=== PATIENT | female | born 1955 | race Caucasian/White ===

== ENCOUNTER → 2016-08-05 | Outpatient (REF) | payer OTHER ==
[~2016-08-05] MED LIST: ASPI1TAB PO; CALCIUM PO; CELE20TA PO; CELE40TA PO; ESTR1TAB PO; FLON1SPR; MEDR2.5T2 PO; MULTCHW13 PO; Mucinex PO; PYRI100T2 PO; SENO8.6T10 PO; VIT PO; VITA-193 SL; VITA20008 PO; VITA80005 PO; XOPENEX NEBULIZER INH; ZANTTAB9 PO; [UNRECOGNIZED DRUG - CODE] PO; colace PO; motrin PO; percocet PO
[2016-08-05 13:08] LABS: BASO % 0.5 % (0.0-1.0); EOS # 0.2 K/mm3 (0.0-0.50); EOS % 2.4 % (0.0-3.0); LARGE UNSTAINED CELL # 0.1 K/mm3 (0.0-0.4); LYMPH # 1.9 K/mm3 (1.5-4.5); LYMPH % 24.5 % (24.0-44.0); MEAN CORPUSCULAR HEMOGLOBIN 27.4 pg (27.0-33.0); MEAN CORPUSCULAR VOLUME 85.9 fl (80.0-96.0); MONO # 0.4 K/mm3 (0.0-0.8); MONO % 4.7 % (0.0-5.0); NEUTROPHILS # 4.9 K/mm3 (1.8-7.7); NEUTROPHILS % 66.9 % (36.0-66.0); PLATELET COUNT, AUTOMATED 255 k/mm3 (150-450); RED CELL DISTRIBUTION WIDTH 13.5 % (11.5-14.5); WHITE BLOOD COUNT 7.4 K/mm3 (4.0-10.0)
[2016-08-05 13:15] LABS: CALCIUM OXALATE CRYSTALS SMALL
[2016-08-05 13:17] LABS: ALBUMIN/GLOBULIN RATIO 1.43 (1.00-1.93); ALKALINE PHOSPHATASE 100 U/L (45-117); ALT/SGPT 26 U/L (12-78); ANION GAP 7 MEQ/L (8-16); AST/SGOT 17 U/L (15-37); BILIRUBIN,TOTAL 0.6 MG/DL (0.2-1.0); BLOOD UREA NITROGEN 14 MG/DL (7-18); CALCIUM LEVEL 9.1 MG/DL (8.8-10.2); CARBON DIOXIDE LEVEL 31 MEQ/L (21-32); CHLORIDE LEVEL 106 MEQ/L (98-107); CREATININE FOR GFR 0.86 MG/DL (0.55-1.02); FERRITIN 24 NG/ML (8-252); GLOMERULAR FILTRATION RATE > 60.0 (>45); GLUCOSE, FASTING 92 MG/DL (80-110); POTASSIUM SERUM 4.7 MEQ/L (3.5-5.1); SODIUM LEVEL 144 MEQ/L (136-145); TOTAL IRON BINDING CAPACITY 400 UG/DL (250-450); TOTAL PROTEIN 6.8 GM/DL (6.4-8.2)
[2016-08-09 00:06] LABS: D001-IgE D pteronyssinus <0.10 kU/L (Class 0); E001-IgE Cat Epith/Dander < 0.10 kU/L (Class 0); E005-IgE Dog Dander < 0.10 kU/L (Class 0); G002-IgE Bermuda Grass < 0.10 kU/L (Class 0); G008-IgE Kentucky Bluegrass < 0.10 kU/L (Class 0); M001-IgE Penicillium chrysogen < 0.10 kU/L (Class 0); M002 IgE Cladosporium herbaru < 0.10 kU/L (Class 0); M003 IgE Aspergillus fumigatu < 0.10 kU/L (Class 0); M006-IgE Alternaria alternata < 0.10 kU/L (Class 0); T001-IgE Maple/Box Elder < 0.10 kU/L (Class 0); T003-IgE Common Silver Birch < 0.10 kU/L (Class 0); T007-IgE Oak, White < 0.10 kU/L (Class 0); T008-IgE Elm, American < 0.10 kU/L (Class 0); T015-IgE Ash, White < 0.10 kU/L (Class 0); T041-IgE Hickory, White < 0.10 kU/L (Class 0); W001-IgE Ragweed, Short < 0.10 kU/L (Class 0); W009-IgE Plantain, English < 0.10 kU/L (Class 0); W014-IgE Pigweed, Rough < 0.10 kU/L (Class 0); W018-IgE Sheep Sorrel < 0.10 kU/L (Class 0)
== END ==
LOC: M SFHCPLAZ 08:47
PROVIDERS: ATTEND Family Medicine
DX: D50.9 Iron deficiency anemia, unspecified (principal); I10 Essential (primary) hypertension; R73.01 Impaired fasting glucose; J30.9 Allergic rhinitis, unspecified

== ENCOUNTER → 2016-12-21 | Outpatient (CLI) | payer OTHER ==
[~2016-12-21] MED LIST changes: +MEDR1TAB2 PO; -MEDR2.5T2 PO; -MULTCHW13 PO; +MULTCHW14 PO
--- NOTE | 2016-12-21 12:21 | REPMRS ---
Patient History The patient states she has not had a clinical breast exam in over a year. Patient is postmenopausal. Family history of breast cancer in maternal aunt at age 50 or over and breast cancer in paternal cousin at age 55. Took unspecified hormones for 5 years. Digital Woman Screen Mammo: December 21, 2016 - Exam #: [id number] Bilateral CC and MLO view(s) were taken. Technologist: Jaquelin Bruner, Technologist Prior study comparison: December 23, 2015, digital woman screen mammo performed at [facility] [employer]. December 20, 2014, digital woman screen mammo performed at [facility] [employer] [facility]. FINDINGS: There are scattered fibroglandular densities. There has been no change in the appearance of the mammogram from the prior studies. There is a mild amount of residual fibroglandular tissue which is fairly symmetric. There is no interval development of dominant mass, architectural distortion, or clustered microcalcification suggestive of malignancy. ASSESSMENT: BI-RADS/ACR category 1 mammogram. Negative. Recommendation Routine screening mammogram in 1 year (for women over age 40). This mammogram was interpreted with the aid of an FDA-approved computer-aided dectection system. Electronically Signed By: Harlan Cummings MD 12/21/16 [id number]
== END ==
LOC: M WHC 11:44
PROVIDERS: ATTEND Family Medicine
DX: Z12.31 Encounter for screening mammogram for malignant neoplasm of breast (principal); Z78.0 Asymptomatic menopausal state; Z92.0 Personal history of contraception

== ENCOUNTER → 2017-01-04 | Outpatient (REF) | payer OTHER ==
[2017-01-04 12:18] LABS: BASO % 0.6 % (0.0-1.0); EOS # 0.2 K/mm3 (0.0-0.50); EOS % 2.9 % (0.0-3.0); LARGE UNSTAINED CELL # 0.1 K/mm3 (0.0-0.4); LARGE UNSTAINED CELL % 1.9 % (0.0-4.0); LYMPH # 1.8 K/mm3 (1.5-4.5); MEAN CORPUSCULAR HEMOGLOBIN 27.7 pg (27.0-33.0); MEAN CORPUSCULAR HGB CONC 32.5 g/dl (32.0-36.5); MEAN CORPUSCULAR VOLUME 85.1 fl (80.0-96.0); MONO # 0.3 K/mm3 (0.0-0.8); MONO % 4.7 % (0.0-5.0); NEUTROPHILS # 4.1 K/mm3 (1.8-7.7); NEUTROPHILS % 62.9 % (36.0-66.0); PLATELET COUNT, AUTOMATED 278 k/mm3 (150-450); RED CELL DISTRIBUTION WIDTH 14.1 % (11.5-14.5); WHITE BLOOD COUNT 6.5 K/mm3 (4.0-10.0)
[2017-01-04 12:23] LABS: ALBUMIN 3.8 GM/DL (3.2-5.2); ALBUMIN/GLOBULIN RATIO 1.41 (1.00-1.93); ALKALINE PHOSPHATASE 85 U/L (45-117); ALT/SGPT 33 U/L (12-78); ANION GAP 10 MEQ/L (8-16); AST/SGOT 22 U/L (15-37); BILIRUBIN,TOTAL 0.8 MG/DL (0.2-1.0); BLOOD UREA NITROGEN 12 MG/DL (7-18); CALCIUM LEVEL 8.9 MG/DL (8.8-10.2); CARBON DIOXIDE LEVEL 28 MEQ/L (21-32); CHLORIDE LEVEL 107 MEQ/L (98-107); CHOLESTEROL LEVEL 205 MG/DL (<200); CREATININE FOR GFR 0.67 MG/DL (0.55-1.02); GLOMERULAR FILTRATION RATE > 60.0 (>45); GLUCOSE, FASTING 96 MG/DL (80-110); POTASSIUM SERUM 4.4 MEQ/L (3.5-5.1); SODIUM LEVEL 145 MEQ/L (136-145); TOTAL PROTEIN 6.5 GM/DL (6.4-8.2); TRIGLYCERIDES LEVEL 111 MG/DL (<150)
== END ==
LOC: M SFHCPLAZ 08:51
PROVIDERS: ATTEND Family Medicine
DX: I10 Essential (primary) hypertension (principal); E78.5 Hyperlipidemia, unspecified

== ENCOUNTER → 2017-04-20 | Outpatient (REF) | payer OTHER ==
[2017-04-20 10:49] LABS: BASO % 0.6 % (0.0-1.0); EOS # 0.2 10^3/uL (0.0-0.50); EOS % 2.8 % (0.0-3.0); IMMATURE GRANULOCYTE % 0.3 % (0-0); LYMPH # 1.7 10^3/uL (1.5-4.5); LYMPH % 24.1 % (24.0-44.0); MEAN CORPUSCULAR HEMOGLOBIN 26.7 pg (27.0-33.0); MEAN CORPUSCULAR HGB CONC 31.8 g/dl (32.0-36.5); MEAN CORPUSCULAR VOLUME 84.1 fl (80.0-96.0); MONO # 0.3 10^3/uL (0.0-0.8); MONO % 4.6 % (0.0-5.0); NEUTROPHILS # 4.8 10^3/uL (1.8-7.7); NEUTROPHILS % 67.6 % (36.0-66.0); PLATELET COUNT, AUTOMATED 305 10^3/uL (150-450); RED CELL DISTRIBUTION WIDTH 14.2 % (11.5-14.5); WHITE BLOOD COUNT 7.1 10^3/uL (4.0-10.0)
[2017-04-20 11:35] LABS: ALBUMIN 3.5 GM/DL (3.2-5.2); ALBUMIN/GLOBULIN RATIO 1.03 (1.00-1.93); ALKALINE PHOSPHATASE 100 U/L (45-117); ALT/SGPT 26 U/L (12-78); ANION GAP 6 MEQ/L (8-16); AST/SGOT 16 U/L (7-37); BILIRUBIN,TOTAL 0.5 MG/DL (0.2-1.0); BLOOD UREA NITROGEN 13 MG/DL (7-18); CALCIUM LEVEL 8.5 MG/DL (8.8-10.2); CARBON DIOXIDE LEVEL 31 MEQ/L (21-32); CHLORIDE LEVEL 107 MEQ/L (98-107); FERRITIN 23 NG/ML (8-252); GLOMERULAR FILTRATION RATE > 60.0 (>45); GLUCOSE, FASTING 94 MG/DL (80-110); PERCENT SATURATION 15.5 % (13.2-45.0); POTASSIUM SERUM 4.6 MEQ/L (3.5-5.1); SODIUM LEVEL 144 MEQ/L (136-145); TOTAL IRON BINDING CAPACITY 386 UG/DL (250-450); TOTAL PROTEIN 6.9 GM/DL (6.4-8.2)
== END ==
LOC: M SFHCPLAZ 09:00
PROVIDERS: ATTEND Family Medicine
DX: R73.01 Impaired fasting glucose (principal); D50.9 Iron deficiency anemia, unspecified; E55.9 Vitamin D deficiency, unspecified

== ENCOUNTER → 2017-06-18 | Outpatient (CLI) | payer OTHER | LOC: M PLARAD 07:44 | DX: M19.071 Primary osteoarthritis, right ankle and foot (principal) | CPT/HCPCS: 73721 ==

== ENCOUNTER 2017-06-24 11:10 | Emergency (ER) | payer OTHER ==
[2017-06-24] MEDS: IBUPROFEN 800 MG TAB PO (12:30)
[2017-06-24] MEDS: IPRATROPIUM 0.5MG/ALBUTEROL 2.5MG INH SOL UD 3ML (DUONEB)(J7620) NEB ×2 (12:30→13:01)
[2017-06-24] MEDS: predniSONE 20 MG TAB PO (12:30)
[2017-06-24] MEDS: AZITHROMYCIN 250 MG TAB PO (13:45)
== END 2017-06-24 14:05 | disposition home or self-care (01) ==
LOC: M ED 11:10
DX: J18.9 Pneumonia, unspecified organism (principal); I10 Essential (primary) hypertension; K21.9 Gastro-esophageal reflux disease without esophagitis
CPT/HCPCS: 71046

== ENCOUNTER → 2017-06-28 | Outpatient (REF) | payer OTHER ==
[2017-06-28 17:02] LABS: ALBUMIN 3.8 GM/DL (3.2-5.2); ALBUMIN/GLOBULIN RATIO 1.03 (1.00-1.93); ALKALINE PHOSPHATASE 102 U/L (45-117); ALT/SGPT 30 U/L (12-78); ANION GAP 6 MEQ/L (8-16); AST/SGOT 19 U/L (7-37); BILIRUBIN,TOTAL 0.4 MG/DL (0.2-1.0); BLOOD UREA NITROGEN 19 MG/DL (7-18); CALCIUM LEVEL 9.2 MG/DL (8.8-10.2); CARBON DIOXIDE LEVEL 32 MEQ/L (21-32); CHLORIDE LEVEL 104 MEQ/L (98-107); GLOMERULAR FILTRATION RATE > 60.0 (>45); GLUCOSE, FASTING 107 MG/DL (70-100); POTASSIUM SERUM 4.8 MEQ/L (3.5-5.1); SODIUM LEVEL 142 MEQ/L (136-145); TOTAL PROTEIN 7.5 GM/DL (6.4-8.2)
[2017-06-28 17:44] LABS: VITAMIN B12 LEVEL > 2000 PG/ML (247-911)
== END ==
LOC: M SFHCPLAZ 12:42
DX: J18.1 Lobar pneumonia, unspecified organism (principal); D51.8 Other vitamin B12 deficiency anemias
CPT/HCPCS: 82607

== ENCOUNTER → 2017-07-05 | Outpatient (REF) | payer OTHER ==
[2017-07-05 15:46] LABS: BASO # 0.1 10^3/uL (0.0-0.2); BASO % 0.5 % (0.0-1.0); EOS # 0.2 10^3/uL (0.0-0.50); EOS % 1.2 % (0.0-3.0); HEMATOCRIT 41.6 % (36.0-47.0); HEMOGLOBIN 12.9 g/dl (12.0-16.0); IMMATURE GRANULOCYTE # 0.1 10^3/uL (0-0); IMMATURE GRANULOCYTE % 0.6 % (0-0); LYMPH % 31.4 % (24.0-44.0); MEAN CORPUSCULAR HEMOGLOBIN 26.7 pg (27.0-33.0); MEAN CORPUSCULAR VOLUME 86.1 fl (80.0-96.0); MONO # 0.9 10^3/uL (0.0-0.8); MONO % 6.7 % (0.0-5.0); NEUTROPHILS # 7.6 10^3/uL (1.8-7.7); NEUTROPHILS % 59.6 % (36.0-66.0); PLATELET COUNT, AUTOMATED 333 10^3/uL (150-450); RED BLOOD COUNT 4.83 10^6/uL (4.00-5.40); RED CELL DISTRIBUTION WIDTH 13.8 % (11.5-14.5); WHITE BLOOD COUNT 12.7 10^3/uL (4.0-10.0)
== END ==
LOC: M SFHCPLAZ 12:27
DX: J01.10 Acute frontal sinusitis, unspecified (principal)

== ENCOUNTER → 2017-08-19 | Outpatient (REF) | payer OTHER ==
[2017-08-19 11:59] LABS: BASO # 0.1 10^3/uL (0.0-0.2); BASO % 0.9 % (0.0-1.0); EOS # 0.2 10^3/uL (0.0-0.50); EOS % 2.9 % (0.0-3.0); HEMATOCRIT 38.8 % (36.0-47.0); HEMOGLOBIN 12.3 g/dl (12.0-16.0); IMMATURE GRANULOCYTE % 0.3 % (0-3.0); LYMPH # 1.9 10^3/uL (1.5-4.5); LYMPH % 27.4 % (24.0-44.0); MEAN CORPUSCULAR HEMOGLOBIN 26.9 pg (27.0-33.0); MEAN CORPUSCULAR HGB CONC 31.7 g/dl (32.0-36.5); MEAN CORPUSCULAR VOLUME 84.7 fl (80.0-96.0); MONO # 0.5 10^3/uL (0.0-0.8); MONO % 6.5 % (0.0-5.0); NEUTROPHILS # 4.3 10^3/uL (1.8-7.7); PLATELET COUNT, AUTOMATED 279 10^3/uL (150-450); RED BLOOD COUNT 4.58 10^6/uL (4.00-5.40); RED CELL DISTRIBUTION WIDTH 14.4 % (11.5-14.5); WHITE BLOOD COUNT 6.9 10^3/uL (4.0-10.0)
[2017-08-19 13:27] LABS: ALBUMIN 3.7 GM/DL (3.2-5.2); ALBUMIN/GLOBULIN RATIO 1.28 (1.00-1.93); ALKALINE PHOSPHATASE 84 U/L (45-117); ALT/SGPT 24 U/L (12-78); ANION GAP 7 MEQ/L (8-16); AST/SGOT 12 U/L (7-37); BILIRUBIN,TOTAL 0.5 MG/DL (0.2-1.0); BLOOD UREA NITROGEN 18 MG/DL (7-18); CALCIUM LEVEL 8.6 MG/DL (8.8-10.2); CARBON DIOXIDE LEVEL 28 MEQ/L (21-32); CHLORIDE LEVEL 109 MEQ/L (98-107); CHOLESTEROL LEVEL 213 MG/DL (<200); CHOLESTEROL RISK RATIO 3.435 (<5); CREATININE FOR GFR 0.61 MG/DL (0.55-1.30); FERRITIN 20 NG/ML (8-252); GLOMERULAR FILTRATION RATE > 60.0 (>45); GLUCOSE, FASTING 90 MG/DL (70-100); HDL CHOLESTEROL 62 MG/DL (>40); IRON (FE) 58 UG/DL (50-170); LDL CHOLESTEROL 136.4 MG/DL (<100); MAGNESIUM LEVEL 2.4 MG/DL (1.8-2.4); NON-HDL-C 151 MG/DL; PERCENT SATURATION 15.7 % (13.2-45.0); POTASSIUM SERUM 4.3 MEQ/L (3.5-5.1); SODIUM LEVEL 144 MEQ/L (136-145); TOTAL IRON BINDING CAPACITY 369 UG/DL (250-450); TOTAL PROTEIN 6.6 GM/DL (6.4-8.2); TRIGLYCERIDES LEVEL 73 MG/DL (<150)
[2017-08-19 13:57] LABS: ESTIMATED AVERAGE GLUCOSE 123 MG/DL (60-110); HEMOGLOBIN A1c 5.9 %
== END ==
LOC: M SFHCPLAZ 08:23
DX: D50.9 Iron deficiency anemia, unspecified (principal); I10 Essential (primary) hypertension; R73.01 Impaired fasting glucose; E78.5 Hyperlipidemia, unspecified
CPT/HCPCS: 83550

== ENCOUNTER → 2017-11-03 | Outpatient (REF) | LOC: M SMT 10:48 | DX: M54.5 Low back pain (principal) ==

== ENCOUNTER → 2017-11-24 | Outpatient (REF) | payer OTHER ==
[2017-11-24 12:08] LABS: BASO # 0.1 10^3/uL (0.0-0.2); BASO % 0.7 % (0.0-1.0); EOS # 0.2 10^3/uL (0.0-0.50); EOS % 2.6 % (0.0-3.0); HEMATOCRIT 39.3 % (36.0-47.0); HEMOGLOBIN 12.6 g/dl (12.0-15.5); IMMATURE GRANULOCYTE % 0.1 % (0-3.0); LYMPH # 1.8 10^3/uL (1.5-4.5); LYMPH % 26.9 % (24.0-44.0); MEAN CORPUSCULAR HEMOGLOBIN 27.3 pg (27.0-33.0); MEAN CORPUSCULAR HGB CONC 32.1 g/dl (32.0-36.5); MEAN CORPUSCULAR VOLUME 85.2 fl (80.0-96.0); MONO # 0.4 10^3/uL (0.0-0.8); MONO % 6.3 % (0.0-5.0); NEUTROPHILS # 4.3 10^3/uL (1.8-7.7); NEUTROPHILS % 63.4 % (36.0-66.0); PLATELET COUNT, AUTOMATED 283 10^3/uL (150-450); RED BLOOD COUNT 4.61 10^6/uL (4.00-5.40); RED CELL DISTRIBUTION WIDTH 14.1 % (11.5-14.5); RETIC HEMOGLOBIN EQUIVALENT 29.4 pg (24-36); RETICULOCYTE # 67.8 10^9/L (17-77); RETICULOCYTE % 1.5 % (0.5-1.5); WHITE BLOOD COUNT 6.8 10^3/uL (4.0-10.0)
[2017-11-24 12:12] LABS: CHOLESTEROL LEVEL 209 MG/DL (<200); CHOLESTEROL RISK RATIO 3.426 (<5); CPK CREATINE PHOSPHOKINASE 100 U/L (26-192); HDL CHOLESTEROL 61 MG/DL (>40); LDL CHOLESTEROL 127.4 MG/DL (<100); NON-HDL-C 148 MG/DL; TRIGLYCERIDES LEVEL 103 MG/DL (<150)
[2017-11-24 12:17] LABS: VITAMIN B12 LEVEL 592 PG/ML (247-911)
[2017-11-24 12:58] LABS: ESTIMATED AVERAGE GLUCOSE 120 MG/DL (60-110); HEMOGLOBIN A1c 5.8 %
[2017-11-25 14:39] LABS: INSULIN LEVEL 12.8 uIU/mL (2.6-24.9)
== END ==
LOC: M SFHCPLAZ 08:41
DX: D51.8 Other vitamin B12 deficiency anemias (principal); E78.5 Hyperlipidemia, unspecified; R73.01 Impaired fasting glucose
CPT/HCPCS: 82550

== ENCOUNTER → 2017-12-22 | Outpatient (CLI) | payer OTHER | LOC: M WHC 13:03 | DX: Z12.31 Encounter for screening mammogram for malignant neoplasm of breast (principal) | CPT/HCPCS: 77067 ==

== ENCOUNTER → 2018-02-16 | Outpatient (CLI) | payer OTHER | LOC: M SMT 09:42 | DX: J45.20 Mild intermittent asthma, uncomplicated (principal) | CPT/HCPCS: 71046 ==

== ENCOUNTER → 2018-04-07 | Outpatient (REF) | payer OTHER ==
[2018-04-07 12:55] LABS: APPEARANCE, URINE HAZY (CLEAR); BACTERIA, URINE AUTO NEGATIVE (NEGATIVE); BILIRUBIN, URINE AUTO NEGATIVE (NEGATIVE); BLOOD, URINE BLOOD NEGATIVE (NEGATIVE); CALCIUM OXALATE CRYSTALS SMALL; COLOR, URINE YELLOW (YELLOW); GLUCOSE, URINE (UA) AUTO NEGATIVE (NEGATIVE); KETONE, URINE AUTO NEGATIVE (NEGATIVE); LEUKOCYTE ESTERASE, URINE AUTO 1+ (NEGATIVE); MUCUS, URINE SMALL (NEGATIVE); NITRITE, URINE AUTO NEGATIVE (NEGATIVE); PROTEIN, URINE AUTO NEGATIVE (NEGATIVE); RBC, URINE AUTO 2 /HPF (0-3); SPECIFIC GRAVITY URINE AUTO 1.021 (1.002-1.035); SQUAMOUS EPITHELIAL CELL UR AU 2 /HPF (0-6); UROBILINOGEN, URINE AUTO 0.2 mg/dL (0.0-2.0); WBC, URINE AUTO 10 /HPF (0-3)
[2018-04-07 13:25] LABS: ALBUMIN 3.9 GM/DL (3.2-5.2); ALBUMIN/GLOBULIN RATIO 1.39 (1.00-1.93); ALKALINE PHOSPHATASE 85 U/L (45-117); ALT/SGPT 22 U/L (12-78); ANION GAP 6 MEQ/L (8-16); AST/SGOT 14 U/L (7-37); BILIRUBIN,TOTAL 0.5 MG/DL (0.2-1.0); BLOOD UREA NITROGEN 19 MG/DL (7-18); CALCIUM LEVEL 9.6 MG/DL (8.8-10.2); CARBON DIOXIDE LEVEL 29 MEQ/L (21-32); CHLORIDE LEVEL 105 MEQ/L (98-107); GLOMERULAR FILTRATION RATE > 60.0 (>45); GLUCOSE, FASTING 90 MG/DL (70-100); MAGNESIUM LEVEL 2.5 MG/DL (1.8-2.4); POTASSIUM SERUM 4.7 MEQ/L (3.5-5.1); SODIUM LEVEL 140 MEQ/L (136-145); TOTAL PROTEIN 6.7 GM/DL (6.4-8.2)
[2018-04-07 16:23] LABS: MALB URINE SIEMENS 32.2 MG/L; MAU/CREAT RATIO 16.8 MCG/MG (0.0-30.0)
[2018-04-07 18:34] LABS: ESTIMATED AVERAGE GLUCOSE 114 MG/DL (60-110); HEMOGLOBIN A1c 5.6 %
== END ==
LOC: M SFHCPLAZ 08:30
DX: R73.01 Impaired fasting glucose (principal); E78.5 Hyperlipidemia, unspecified

== ENCOUNTER → 2018-05-10 | Outpatient (CLI) | payer OTHER | LOC: M RAD 14:02 | DX: R59.0 Localized enlarged lymph nodes (principal); D17.0 Benign lipomatous neoplasm of skin and subcutaneous tissue of head, face and neck | CPT/HCPCS: 76536 ==

== ENCOUNTER → 2018-08-24 | Outpatient (REF) | payer OTHER ==
[~2018-08-24] MED LIST changes: +ALBU83IN INH; +ALEV1TAB PO; +AMLO2.5T3 PO; +COZA1TAB PO; +DULO30CA PO; +PRED10TA2 PO; +ZITHTAB PO; +[UNRECOGNIZED DRUG - CODE] PO
[2018-08-24 11:39] LABS: BASO # 0.1 10^3/uL (0.0-0.2); BASO % 0.9 % (0.0-1.0); EOS # 0.2 10^3/uL (0.0-0.50); EOS % 2.4 % (0.0-3.0); HEMATOCRIT 39.6 % (36.0-47.0); HEMOGLOBIN 12.7 g/dl (12.0-15.5); LYMPH # 2.1 10^3/uL (1.5-4.5); LYMPH % 29.7 % (24.0-44.0); MEAN CORPUSCULAR HEMOGLOBIN 26.5 pg (27.0-33.0); MEAN CORPUSCULAR HGB CONC 32.1 g/dl (32.0-36.5); MEAN CORPUSCULAR VOLUME 82.5 fl (80.0-96.0); MONO # 0.5 10^3/uL (0.0-0.8); NEUTROPHILS # 4.2 10^3/uL (1.8-7.7); NEUTROPHILS % 59.6 % (36.0-66.0); PLATELET COUNT, AUTOMATED 271 10^3/uL (150-450)
[2018-08-24 11:55] LABS: ALBUMIN 3.9 GM/DL (3.2-5.2); ALT/SGPT 17 U/L (12-78); BILIRUBIN,TOTAL 0.6 MG/DL (0.2-1.0); BLOOD UREA NITROGEN 18 MG/DL (7-18); C REACTIVE PROTEIN QUANTITATIV 0.76 MG/DL (0.00-0.30); CALCIUM LEVEL 9.1 MG/DL (8.8-10.2); CARBON DIOXIDE LEVEL 31 MEQ/L (21-32); CHLORIDE LEVEL 107 MEQ/L (98-107); CHOLESTEROL LEVEL 231 MG/DL (<200); CHOLESTEROL RISK RATIO 4.052 (<5); CREATININE FOR GFR 0.82 MG/DL (0.55-1.30); GLOMERULAR FILTRATION RATE > 60.0 (>45); GLUCOSE, FASTING 90 MG/DL (70-100); HDL CHOLESTEROL 57 MG/DL (>40); LDL CHOLESTEROL 159 MG/DL (<100); NON-HDL-C 174 MG/DL; POTASSIUM SERUM 4.6 MEQ/L (3.5-5.1); SODIUM LEVEL 141 MEQ/L (136-145); TOTAL PROTEIN 6.9 GM/DL (6.4-8.2); TRIGLYCERIDES LEVEL 74 MG/DL (<150)
[2018-08-24 12:02] LABS: PTH INTACT 87.2 PG/ML (18.5-88.0)
[2018-08-24 12:05] LABS: HEMOGLOBIN A1c 5.6 %
== END ==
LOC: M SFHCPLAZ 08:34
PROVIDERS: ATTEND Family Medicine
DX: D50.9 Iron deficiency anemia, unspecified (principal); E55.9 Vitamin D deficiency, unspecified; E78.5 Hyperlipidemia, unspecified; R73.01 Impaired fasting glucose

== ENCOUNTER → 2018-12-19 | Outpatient (CLI) | payer OTHER ==
[~2018-12-19] MED LIST changes: -ASPI1TAB PO; +ASPI81TA26 PO; +ATOR1TAB21 PO; -DULO30CA PO; +DULO30CA9 PO; +LEVOCETIRIZINE PO; +OMEP40CA2 PO; +TELM1TAB PO
--- NOTE | 2018-12-19 14:49 | REPMRS ---
Patient History The patient states she has not had a clinical breast exam in over a year. Patient is postmenopausal. Family history of breast cancer at age 50 or over in maternal aunt. Taking estrogen for 1 month. Taking unspecified hormones for 5 years 1 month. 3D TOMOSYNTHESIS WAS PERFORMED. [facility] lifetime risk for breast cancer is 9.1%. Digital Woman Screen Mammo: December 19, 2018 - Exam #: [id number] Bilateral MLO and CC view(s) were taken. CV view(s) were taken of the right breast. Technologist: Breanna Jules, Technologist Prior study comparison: December 22, 2017, bilateral digital woman screen mammo performed at [facility] [email or web address]. December 21, 2016, digital woman screen mammo performed at [facility] [email or web address] [facility] [email or web address] [facility]. FINDINGS: There are scattered fibroglandular densities. There has been no change in the appearance of the mammogram from the prior studies. There is a mild amount of residual fibroglandular tissue which is fairly symmetric. There is no interval development of dominant mass, architectural distortion, or clustered microcalcification suggestive of malignancy. Assessment: BI-RADS/ACR category 1 mammogram. Negative Mammogram. Recommendation Routine screening mammogram in 1 year (for women over age 40). This mammogram was interpreted with the aid of an FDA-approved computer-aided dectection system. Electronically Signed By: Harlan Cummings MD 12/19/18 [id number]
--- NOTE | 2018-12-21 12:32 | DEXA ---
AP SPINE L1 - L4 1.057 -1.0 0.4 LT FEMUR TOTAL 0.985 -0.2 0.9 LT NECK 0.887 -1.1 0.3 RT FEMUR TOTAL 0.909 -0.8 0.3 RT NECK 0.893 -1.0 0.3 TOTAL BODY TOTAL OTHER COMMENTS: There is low bone density of the spine and hips. The decreased density of the spine does represent a significant change. The decreased density of the left hip does represent significant change. The decreased density of the right hip does represent a significant change. The density of the spine has increased 4.2% since the initial exam on 02/08/2001. The spine density has decreased 8.7% since the most recent exam on 12/25/2013. The density of the left hip has decreased 5.4% since the initial exam on 02/08/2001. The density of the left hip has decreased 9.8% since the most recent exam on 12/25/2013. The density of the right hip has decreased 7.8% since the initial exam on 02/08/2001. The density of the right hip has decreased 10.4% since the most recent exam on 12/25/2013. FOLLOW-UP: Recommendation for the next bone density exam: 2 years. OSWALD
== END ==
LOC: M WHC 12:56
PROVIDERS: ATTEND Family Medicine
DX: Z12.31 Encounter for screening mammogram for malignant neoplasm of breast (principal); E55.9 Vitamin D deficiency, unspecified; Z78.0 Asymptomatic menopausal state; Z92.23 Personal history of estrogen therapy; Z92.29 Personal history of other drug therapy

== ENCOUNTER → 2019-01-03 | Outpatient (CLI) | payer OTHER ==
[~2019-01-03] MED LIST changes: +CYAN500T9 SL; -VITA-193 SL
[2019-01-03 10:22] LABS: HEMATOCRIT 41.9 % (36.0-47.0); HEMOGLOBIN 13.4 g/dl (12.0-15.5); MEAN CORPUSCULAR HEMOGLOBIN 28.1 pg (27.0-33.0); MEAN CORPUSCULAR VOLUME 87.8 fl (80.0-96.0); PLATELET COUNT, AUTOMATED 262 10^3/uL (150-450); RED BLOOD COUNT 4.77 10^6/uL (4.00-5.40); WHITE BLOOD COUNT 7.5 10^3/uL (4.0-10.0)
[2019-01-03 10:35] LABS: INR 1.02; PROTHROMBIN TIME 13.1 SECONDS (11.8-14.0)
[2019-01-03 10:45] LABS: ALBUMIN 3.6 GM/DL (3.2-5.2); ALT/SGPT 18 U/L (12-78); BILIRUBIN,TOTAL 0.5 MG/DL (0.2-1.0); BLOOD UREA NITROGEN 13 MG/DL (7-18); CARBON DIOXIDE LEVEL 31 MEQ/L (21-32); CHLORIDE LEVEL 108 MEQ/L (98-107); CREATININE FOR GFR 0.73 MG/DL (0.55-1.30); GLOMERULAR FILTRATION RATE > 60.0 (>45); GLUCOSE, FASTING 69 MG/DL (70-100); POTASSIUM SERUM 4.4 MEQ/L (3.5-5.1); SODIUM LEVEL 143 MEQ/L (136-145); TOTAL PROTEIN 6.6 GM/DL (6.4-8.2)
[2019-01-03 11:31] LABS: ERYTHROCYTE SEDIMENTATION RATE 24 mm/hr (0-30)
--- NOTE | 2019-01-04 02:19 | REP ---
Clinical: Preoperative assessment. Comparison: 03/29/2016 . Technique: PA and lateral. Findings: The mediastinum and cardiac silhouette are normal. The lung nelson are clear and without acute consolidation, effusion, or pneumothorax. The skeletal structures are intact and normal. Impression: 1. No acute cardiopulmonary process. Electronically Signed by Darryl Miranda MD 01/04/2019 02:11 A
--- NOTE | 2019-01-04 07:42 | ECGEPIP ---
[facility] Test Date: 2019-01-03 Pat Name: BELLA STAFFORD Department: Room: - Gender: Female Informatics Pharmacist: [facility] : 1955 Requested By: LIZABETH Rosenberg Order Number: [id number] Reading MD: Harjit Sandoval Measurements Intervals [place] Rate: 81 P: 75 KS: 182 QRS: 37 QRSD: 97 T: 46 QT: 338 QTc: 393 Interpretive Statements Normal sinus rhythm Minor T-wave abnormalities Comparison tracing not on file Electronically Signed on 01-04-2019 7:41:45 EDT by Harjit Sandoval
== END ==
LOC: M RAD 09:33
PROVIDERS: ATTEND Orthopaedic Surgery
DX: M19.071 Primary osteoarthritis, right ankle and foot (principal)

== ENCOUNTER → 2019-01-11 | Outpatient (REF) | payer OTHER ==
[2019-01-11 11:06] LABS: CHOLESTEROL RISK RATIO 2.636 (<5); MAGNESIUM LEVEL 2.3 MG/DL (1.8-2.4); PTH INTACT 64.5 PG/ML (18.5-88.0); THYROID STIMULATING HORMONE 1.38 uIU/ML (0.358-3.740); TOTAL 25(OH) VITAMIN D 55.7 NG/ML (30.0-100.0)
== END ==
LOC: M SFHCPLAZ 08:07
PROVIDERS: ATTEND Family Medicine
DX: E78.5 Hyperlipidemia, unspecified (principal); I10 Essential (primary) hypertension; E55.9 Vitamin D deficiency, unspecified; D51.8 Other vitamin B12 deficiency anemias

== ENCOUNTER 2019-01-19 05:44 | Inpatient (IN) | payer OTHER ==
--- NOTE | 2019-01-18 07:27 | HPE ---
DATE OF ADMISSION: CHIEF COMPLAINT: Right ankle pain. 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 She presents for a right total ankle replacement. PAST MEDICAL HISTORY: 1. Depression. 2. Obesity. 3. Sinusitis. 4. Gastroesophageal reflux disease (GERD). 5. Anemia secondary to iron and B12 deficiency. 6. Asthma. 7. Hypertension. 8. Vitamin D deficiency. PAST SURGICAL HISTORY: 1. Tubal ligation at age 30. 2. Tonsillectomy at age 19. 3. Bilateral foot surgery. 4. Endoscopy. 5. Endometrial ablation. 6. Hysterectomy. 7. Hammertoe surgery. 8. Colonoscopy. SOCIAL HISTORY: Patient lives alone with her two cats. Her mother is still alive. PHYSICAL EXAMINATION: GENERAL: Well appearing, alert and oriented, no acute distress. CARDIOVASCULAR: Regular rate and rhythm. ABDOMEN: Soft, nontender. LUNGS: Clear to auscultation. MUSCULOSKELETAL: Tenderness across the tibiotalar joint with mild swelling. Skin is intact. Intact extensor hallucis longus (EHL)/flexor hallucis longus (FHL)/tibialis anterior (TA)/gastrocnemius soleus (GS). Normal sensation to light touch in the superficial peroneal, deep peroneal and tibial distribution. Warm and well perfused. IMAGING: Radiographs from [facility] were reviewed. There is advanced osteoarthritis of the tibiotalar joint with subluxation in the sagittal plane. IMPRESSION: Patient would like to proceed with a right total ankle replacement. Risks and benefits of surgery were discussed with the patient in detail and include, but are not limited to infection, damage to nerves and blood vessels, need for additional procedures, implant infection or loosening, blood clot, continued pain and stiffness. Informed consent was obtained in the office. The patient will be admitted to the hospital for at least one day. She will be on Xarelto for deep vein thrombosis (DVT) prophylaxis for at least two weeks after the surgery. OSWALD
[~2019-01-19] VITALS: Ht 162.6 cm; Wt 113.4 kg
[2019-01-19] MEDS ORDERED: LIDOCAINE 1% MDV 20ML VIAL SQ PRN (06:00)
[2019-01-19] MEDS ORDERED: LEVOTAB10 PO (06:29)
[2019-01-19] MEDS ORDERED: DULO1CAP4 PO (06:29)
[2019-01-19] MEDS ORDERED: CELE20TA PO (06:30)
[2019-01-19] MEDS ORDERED: MIDAZOLAM INJ 2 MG/2 ML VIAL (J2250) As Ordered ONE (06:45)
[2019-01-19] MEDS ORDERED: fentaNYL 100 MCG/2 ML INJECTION (J3010) As Ordered ONE ×4 (06:45→11:09)
[2019-01-19] MEDS ORDERED: LR 1,000 ML IV ONE (07:00)
[2019-01-19] MEDS ORDERED: ROCURONIUM BROMIDE 50 MG/5 ML VIAL As Ordered ONE ×3 (07:14→11:47)
[2019-01-19] MEDS ORDERED: PROPOFOL 200 MG/20 ML VIAL As Ordered ONE (07:14)
[2019-01-19] MEDS ORDERED: ONDANSETRON 4MG/2ML VIAL (J2405) As Ordered ONE (07:14)
[2019-01-19] MEDS ORDERED: LIDOCAINE 2% INJ 100 MG/5 ML SDV (FOR ANES.) As Ordered ONE (07:14)
[2019-01-19] MEDS ORDERED: dexameTHASONE 4 MG/ML 1ML VIAL (J1100) As Ordered ONE (07:14)
[2019-01-19] MEDS: fentaNYL 100 MCG/2 ML INJECTION (J3010) IV SCH ×2 (07:27→07:29)
[2019-01-19] MEDS ORDERED: MIDAZOLAM INJ 2 MG/2 ML VIAL (J2250) IV SCH (08:00)
[2019-01-19] MEDS ORDERED: GLYCOPYRROLATE INJ 0.2 MG/ML 2 ML VIAL As Ordered ONE (08:16)
[2019-01-19] MEDS ORDERED: ePHEDrine SULFATE 25 MG/5 ML(5MG/ML) SYRINGE As Ordered ONE (08:32)
[2019-01-19] MEDS ORDERED: SUGAMMADEX SODIUM 500 MG/5 ML VIAL (BRIDION) As Ordered ONE (08:36)
[2019-01-19] MEDS ORDERED: LABETALOL HCL 100 MG/20 ML VIAL As Ordered ONE (10:10)
[2019-01-19] MEDS ORDERED: ACETAMINOPHEN 1000MG 100ML IV BTL (OFIRMEV) (J0131 PER 10MG) As Ordered ONE (10:33)
[2019-01-19] MEDS ORDERED: ceFAZolin 2 GM/D5W 50 ML IV BAG (J0690 PER 500MG) As Ordered ONE (11:46)
--- NOTE | 2019-01-19 14:22 | REP ---
Right ankle: Four views. History: Right ankle arthritis. 5 minutes and 7 seconds of fluoroscopy time is reported. Findings: A sequence of four last image hold fluoroscopically obtained spot radiographs of the right ankle document right ankle arthroplasty components in position. An anterior surgical drain is seen in the adjacent soft tissues. Electronically Signed by Layton Milton MD 01/19/2019 04:51 P
[2019-01-19] MEDS ORDERED: LR 1,000 ML IV SCH ×2 (14:30→16:30)
[2019-01-19] MEDS ORDERED: FLEET ENEMA PR PRN (14:30)
[2019-01-19] MEDS ORDERED: PERCOCET 5MG/325MG TAB PO PRN ×2 (14:30→16:30)
[2019-01-19] MEDS ORDERED: ONDANSETRON 4MG/2ML VIAL (J2405) IV PRN ×2 (14:30→16:30)
[2019-01-19] MEDS ORDERED: fentaNYL 100 MCG/2 ML INJECTION (J3010) IV PRN ×2 (14:30→16:30)
[2019-01-19] MEDS ORDERED: MORPHINE 10 MG/ML 1ML VIAL (J2270) IV PRN ×2 (14:30→16:30)
[2019-01-19] MEDS ORDERED: oxyCODONE 5MG TAB PO PRN (14:45)
[2019-01-19] MEDS ORDERED: MORPHINE 4 MG/ML 1ML VIAL/SYRINGE (J2270) IV PRN (14:45)
[2019-01-19 16:00] VITALS: BP 109/53
[2019-01-19 16:30] VITALS: BP 106/54
[2019-01-19] MEDS: ACETAMINOPHEN 500 MG TAB PO SCH ×2 (16:39→23:18)
[2019-01-19] MEDS: LR 1,000 ML IV SCH (16:39)
[2019-01-19] MEDS ORDERED: dexameTHASONE 10 MG/1 ML VIAL PRES.FREE (J1100) ONE (16:44)
[2019-01-19] MEDS ORDERED: LIDOCAINE 1% MDV 20ML VIAL ONE (16:44)
[2019-01-19] MEDS ORDERED: ROPIvacaine 0.5% 30 ML INJECTION (J2795 PER 1MG) ONE (16:44)
--- NOTE | 2019-01-19 16:54 | CR.PDOC ---
General Date of Consultation: Jan 19, 2019 Referring Provider: LIZABETH ANTHONY MD Attending Physician: FLYNN COLLADO MD Consultation REASON FOR CONSULTATION/CHIEF COMPLAINT: Medical management. HISTORY OF PRESENT ILLNESS: This is a 63 years old female with past medical history of depression, obesity, sinusitis, GERD, anemia, asthma, hypertension, vitamin D deficiency. She had a right ankle arthroplasty done by Dr. Lopez and we will called in for medical consult for medical management. Patient offers complaints of pain at the surgical site and no other complaints such as chest pain, shortness of breath, nausea, vomiting, etc.. ALLERGIES: Please see below. HOME MEDICATIONS: Please see below. PAST MEDICAL HISTORY: , Depression, obesity, sinusitis, GERD, anemia secondary to vitamin B12 deficiency, asthma, hypertension, vitamin D deficiency PAST SURGICAL HISTORY: , Tubal ligation, tonsillectomy, bilateral foot surgery endoscopy, endometrial ablation, hysterectomy, hammertoe surgery and colonoscopy FAMILY HISTORY: Noncontributory Mother: Not applicable Siblings: None Children: None Hereditary Diseases: None Unexpected deaths due to medical reasons: None SOCIAL HISTORY: Marital status and/or living arrangements: Patient lives alone. Denies history of smoking, alcohol or drugs Children: None Employment: no Tobacco use:None ETOH: None Illicit drug use: None IV drug use: None Other relevant social factors: None REVIEW OF SYSTEMS: CONSTITUTIONAL: , No headache, fever. HEENT: . No eye or ear pain. CARDIOVASCULAR: No chest pain, palpitations. RESPIRATORY: , No shortness of breath, cough. GENITOURINARY: Dysuria, frequency. MUSCULOSKELETAL: No aches or pains. GASTROINTESTINAL: , No nausea, vomiting and diarrhea. SKIN: No rash. NEUROLOGICAL: . No weakness or loss of strength or sensory loss. PSYCHIATRIC: No depression, anxiety. ENDOCRINE: , No diabetes. Worcester's disease or thyroid. HEMATOLOGIC/LYMPHATIC: No anemia or leukemia. ALLERGIC/IMMUNOLOGIC: no allergies. PHYSICAL EXAMINATION: VITAL SIGNS: Please see below. GENERAL APPEARANCE: Patient is comfortable, very pleasant, in no apparent distress. HEENT: . Pupils bilaterally equal to accommodation. RESPIRATORY: Clear to A&P. CARDIOVASCULAR: S1, S2, regular. ABDOMEN: , Soft, nontender. Once the present. EXTREMITIES: No clubbing, cyanosis, edema. NEUROLOGICAL: . No focal motor sensory deficit. PSYCHIATRIC: No depression, anxiety. LABORATORY DATA: Please see below. ASSESSMENT/PLAN: #1 status post right ankle arthroplasty #2. Hypertension #3. Anemia #4. Asthma #5. Obesity Patient had a right ankle arthroplasty done today. Dressing with block in place. Pain management and DVT prophylaxis as per orthopedic Continue all home medications Physical therapy evaluation DC planning as per orders. Vital Signs/I&O Vital Signs Date Time Temp Pulse Resp B/P (MAP) Pulse Ox O2 Delivery O2 Flow Rate FiO2 01/19/19 16:30 97.2 80 17 106/54 (71) 96 01/19/19 15:20 2 Allergies Coded Allergies: No Known Allergies (Verified , 01/19/19) Home Medications Scheduled Amlodipine Besylate (Amlodipine Besylate) 2.5 Mg Tab, 2.5 MG PO BID, (Reported) Atorvastatin Calcium (Atorvastatin Calcium) 20 Mg Tablet, 20 MG PO DAILY, (Reported) Citalopram Hydrobromide (Celexa) 20 Mg Tablet, 1 TAB PO DAILY for 30 Days, #30 (Reported) Duloxetine Hcl (Duloxetine HCl) 20 Mg Capsule.dr, 2 CAP PO DAILY for 30 Days, #60 (Reported) Levocetirizine Dihydrochloride (Levocetirizine Dihydrochloride) 5 Mg Tablet, 5 MG PO DAILY for 30 Days, #30 (Reported) Omeprazole (Omeprazole) 40 Mg Capsule.dr, 40 MG PO DAILY, (Reported) Telmisartan (Telmisartan) 40 Mg Tablet, 40 MG PO DAILY, (Reported) Scheduled PRN Albuterol Sulf (Albuterol Sulfate) 2.5 Mg/3 Ml Nebu, 2.5 MG INH PRN PRN for SHORTNESS OF BREATH, (Reported) Fluticasone Propionate (Flonase Allergy Relief) 50 Mcg/Act Spr, 50 MCG NA DAILY PRN for CONGESTION, (Reported) FLYNN COLLADO MD Jan 19, 2019 16:54
[2019-01-19] MEDS ORDERED: FLUTICASONE PROP 0.05% NASAL SPRAY 16 GM (FLONASE) PRN (17:00)
[2019-01-19] MEDS ORDERED: ALBUTEROL SULFATE 2.5 MG/0.5 ML INH NEB SOLN INH PRN (17:00)
[2019-01-19 17:30] VITALS: BP 115/73
[2019-01-19] MEDS: DULoxetine 20 MG CAP (CYMBALTA) PO SCH (17:55)
[2019-01-19 18:30] VITALS: BP 112/70
[2019-01-19 19:30] VITALS: BP 111/70
[2019-01-19] MEDS: oxyCODONE 5MG TAB PO PRN (20:11)
[2019-01-19 21:05] VITALS: BP 138/70
[2019-01-20] MEDS: LR 1,000 ML IV SCH ×3 (01:37→23:51)
[2019-01-20 02:21] VITALS: BP 119/63
[2019-01-20] MEDS: oxyCODONE 5MG TAB PO PRN ×5 (02:31→21:51)
[2019-01-20 06:24] VITALS: BP 117/66
[2019-01-20] MEDS: ACETAMINOPHEN 500 MG TAB PO SCH ×3 (06:24→21:20)
[2019-01-20] MEDS ORDERED: OXYC-517 PO (06:58)
[2019-01-20] MEDS ORDERED: XARE10TA PO (06:58)
[2019-01-20] MEDS ORDERED: ACET-683 PO (07:02)
[2019-01-20 07:24] LABS: HEMATOCRIT 34.5 % (36.0-47.0); HEMOGLOBIN 10.9 g/dl (12.0-15.5); MEAN CORPUSCULAR HEMOGLOBIN 27.8 pg (27.0-33.0); MEAN CORPUSCULAR HGB CONC 31.6 g/dl (32.0-36.5); PLATELET COUNT, AUTOMATED 228 10^3/uL (150-450); RED BLOOD COUNT 3.92 10^6/uL (4.00-5.40); WHITE BLOOD COUNT 10.8 10^3/uL (4.0-10.0)
[2019-01-20 08:03] LABS: ALBUMIN 2.9 GM/DL (3.2-5.2); ALT/SGPT 29 U/L (12-78); BILIRUBIN,TOTAL 0.5 MG/DL (0.2-1.0); BLOOD UREA NITROGEN 13 MG/DL (7-18); CALCIUM LEVEL 8.5 MG/DL (8.8-10.2); CARBON DIOXIDE LEVEL 31 MEQ/L (21-32); CHLORIDE LEVEL 107 MEQ/L (98-107); CREATININE FOR GFR 0.71 MG/DL (0.55-1.30); GLOMERULAR FILTRATION RATE > 60.0 (>45); GLUCOSE, FASTING 115 MG/DL (70-100); POTASSIUM SERUM 4.2 MEQ/L (3.5-5.1); SODIUM LEVEL 139 MEQ/L (136-145); THYROID STIMULATING HORMONE 0.458 uIU/ML (0.358-3.740); TOTAL PROTEIN 5.9 GM/DL (6.4-8.2)
[2019-01-20] MEDS: OMEPRAZOLE 20 MG CAP PO SCH (08:34)
[2019-01-20] MEDS: TELMISARTAN 20 MG TAB PO SCH (08:34)
--- NOTE | 2019-01-20 08:34 | IPNPDOC ---
Subjective Date Seen The patient was seen on 01/20/19. Subjective Chief Complaint/HPI Had some hypoxemia overnight - resolved with oxygen via NC. No known h/o CRICKET. Has some mild Asthma. Denies SOB, CP. Feels well today other than pain in ankle post-surgery Constitutional: Denies: Chills, Fever Pulmonary: Denies: Dyspnea, Cough Cardiovascular: Denies: Chest Pain, Palpitations Gastrointestinal: Denies: Nausea, Vomiting, Abdominal Pain, Diarrhea, Constipation Musculoskeletal: Reports: Foot Pain Objective Physical Examination General Exam: Positive: Alert, No Acute Distress Chest Exam: Positive: Clear to auscultation, Normal air movement; Negative: Rales, Rhonchi, Wheezing Heart Exam: Positive: Rate Normal, Regular Rhythm Abdomen Exam: Positive: Normal bowel sounds, Soft; Negative: Tenderness Extremity Exam: Positive: Other (Right foot bandaged) Assessment /Plan Problems (1) HTN (hypertension) Status: Chronic Response to Treatment: Stable Problem Text: BP controlled on current regimen (2) Asthma Status: Chronic Response to Treatment: Stable Problem Text: Had some mild hypoxemia overnight likely related to narcotics and possible underlying CRICKET in this obese patient Has knwn h/o Asthma - stable currently without exacerbation Cont Oxygen and IS with Albuterol prn (3) Depression Status: Chronic Response to Treatment: Stable Plan/VTE VTE Prophylaxis Ordered?: Yes (Xarelto per ortho) VS, [facility]&O[facility] Vital Signs/I&O Vital Signs Date Time Temp Pulse Resp B/P (MAP) Pulse Ox O2 Delivery O2 Flow Rate FiO2 01/20/19 06:24 97.2 80 11 117/66 (83) 99 2.0 I&O- Last 24 Hours up to 6 AM 01/20/19 06:00 Intake Total 1320 ml Output Total 2700 ml Balance -1380 ml Laboratory Data 24H LABS Laboratory Tests 2 01/20/19 06:40: Nucleated Red Blood Cells % (auto) 0.0, Anion Gap 1L, Glomerular Filtration Rate > 60.0, Blood Urea Nitrogen 13, Creatinine 0.71, Sodium Level 139, Potassium Level 4.2, Chloride Level 107, Carbon Dioxide Level 31, Calcium Level 8.5L, Aspartate Amino Transf (AST/SGOT) 88H, Alanine Aminotransferase (ALT/SGPT) 29, Alkaline Phosphatase 74, Total Bilirubin 0.5, Total Protein 5.9L, Albumin 2.9L, Albumin/Globulin Ratio 0.97L, Thyroid Stimulating Hormone (TSH) 0.458 CBC/BMP Laboratory Tests 01/20/19 06:40 Red Blood Count 3.92 L, Mean Corpuscular Volume 88.0, Mean Corpuscular Hemoglobin 27.8, Mean Corpuscular Hemoglobin Concent 31.6 L, Red Cell Distri bution Width 14.4, Calcium Level 8.5 L, Aspartate Amino Transf (AST/SGOT) 88 H, Alanine Aminotransferase (ALT/SGPT) 29, Alkaline Phosphatase 74, Total Bilirubin 0.5, Total Protein 5.9 L, Albumin 2.9 L JENELLE AMADOR PA-C Jan 20, 2019 08:34
[2019-01-20] MEDS: DULoxetine 20 MG CAP (CYMBALTA) PO SCH (08:35)
[2019-01-20] MEDS: CitaloPRAM (CeleXA) 20 MG TAB PO SCH (08:35)
[2019-01-20] MEDS: ATORVASTATIN 20 MG TAB PO SCH (08:40)
[2019-01-20] MEDS ORDERED: CitaloPRAM (CeleXA) 10 MG TABLET PO SCH (09:00)
[2019-01-20 14:00] VITALS: BP 92/58
[2019-01-20] MEDS: RIVAROXABAN 10 MG TAB (XARELTO) PO SCH (17:48)
[2019-01-20 20:57] VITALS: BP 108/67
[2019-01-21] MEDS: oxyCODONE 5MG TAB PO PRN ×5 (03:25→21:43)
[2019-01-21] MEDS: ACETAMINOPHEN 500 MG TAB PO SCH ×3 (05:54→21:42)
[2019-01-21 07:04] VITALS: BP 108/67
--- NOTE | 2019-01-21 07:20 | IPN ---
DATE: 01/21/2019 CHIEF COMPLAINT: Postoperative day #2 right total ankle arthroplasty. HISTORY OF THE PRESENT ILLNESS: This 63-year-old female was admitted to [address] [place] [address]. She was seen on the king postoperative day #2 following a right total ankle arthroplasty for advanced tibiotalar arthritis. She is doing well, the pain is more well controlled. No concerns from her or the nursing staff. PHYSICAL EXAM: She is a well-appearing 63-year-old female, in no acute distress. Vital signs are stable. Respiratory rate 16 this morning. No other vital signs recorded. She is able to wiggle her toes. Toes are warm and well perfused. MARCOS drain is in situ and has approximately 30 or 40 mL of sanguinous fluid. ASSESSMENT/PLAN: This 63-year-old female unfortunately has poor family supports. She only has her mother who is [address] She does not have any other family supports side from her elderly mother. We will work on getting her appropriately set up with a chair for in the shower, another home visit to ensure that she has appropriate safety measures in place. We have let her know that she is able to be discharged home today if she is able to manage, remain non-weightbearing and control her pain with outpatient pain medications, which she would have to scrap picker from the pharmacy. We will see how today goes.
[2019-01-21] MEDS ORDERED: MAGNESIUM CITRATE 300 ML BTL PO ONE (07:30)
[2019-01-21] MEDS: OMEPRAZOLE 20 MG CAP PO SCH (09:19)
[2019-01-21] MEDS: CitaloPRAM (CeleXA) 20 MG TAB PO SCH (09:19)
[2019-01-21] MEDS: DULoxetine 20 MG CAP (CYMBALTA) PO SCH (09:19)
[2019-01-21] MEDS: ATORVASTATIN 20 MG TAB PO SCH (09:19)
[2019-01-21] MEDS: TELMISARTAN 20 MG TAB PO SCH (09:19)
[2019-01-21] MEDS: SENOKOT S TAB PO SCH ×2 (09:19→21:42)
[2019-01-21] MEDS: MIRALAX *UNIT DOSE* 17GM PACKET PO SCH (09:20)
[2019-01-21] MEDS: MOM 30ML SUSPENSION UDC PO SCH (09:20)
--- NOTE | 2019-01-21 10:29 | IPN ---
DATE OF SERVICE: 01/21/2019 Lelo is seen on [address]. She is a patient of Dr. Hart. She is feeling well. No shortness of breath, wheezing and her oxygen saturations have been good. PHYSICAL EXAMINATION: Vital signs stable. Oxygen saturation 94% room air. General appearance: Alert, conversant, no distress. Lungs: Clear. Heart: Regular rhythm. Abdomen: Soft, nontender. IMPRESSION: 1. Chronic obstructive pulmonary disease (COPD) stable. Not symptomatic. At this point, she is medically stable. I will see the patient back if necessary. Call if there is any medical issues that arise.
[2019-01-21 14:00] VITALS: BP 107/62
[2019-01-21] MEDS: RIVAROXABAN 10 MG TAB (XARELTO) PO SCH (18:14)
[2019-01-21 22:00] VITALS: BP 105/58
[2019-01-22 06:00] VITALS: BP 103/58
[2019-01-22] MEDS: ACETAMINOPHEN 500 MG TAB PO SCH ×3 (06:08→21:51)
[2019-01-22] MEDS: oxyCODONE 5MG TAB PO PRN ×4 (06:08→22:26)
[2019-01-22] MEDS: MIRALAX *UNIT DOSE* 17GM PACKET PO SCH (09:37)
[2019-01-22] MEDS: MOM 30ML SUSPENSION UDC PO SCH (09:37)
[2019-01-22] MEDS: TELMISARTAN 20 MG TAB PO SCH (09:38)
[2019-01-22] MEDS: OMEPRAZOLE 20 MG CAP PO SCH (09:38)
[2019-01-22] MEDS: DULoxetine 20 MG CAP (CYMBALTA) PO SCH (09:38)
[2019-01-22] MEDS: SENOKOT S TAB PO SCH ×2 (09:38→21:50)
[2019-01-22] MEDS: ATORVASTATIN 20 MG TAB PO SCH (09:38)
[2019-01-22] MEDS: CitaloPRAM (CeleXA) 20 MG TAB PO SCH (09:39)
[2019-01-22 14:00] VITALS: BP 111/60
[2019-01-22] MEDS: RIVAROXABAN 10 MG TAB (XARELTO) PO SCH (18:03)
[2019-01-22 21:50] VITALS: BP 115/64
[2019-01-22 22:00] VITALS: BP 115/64
[2019-01-23 06:00] VITALS: BP 100/61
[2019-01-23] MEDS: ACETAMINOPHEN 500 MG TAB PO SCH (06:24)
--- NOTE | 2019-01-23 08:03 | IPN ---
DATE: 01/23/2019 CHIEF COMPLAINT: Postoperative approximately day 4, right total ankle arthroplasty. HISTORY OF PRESENT ILLNESS: This is a 63-year-old female who is having some difficulties with placement issues and discharging and safety for discharge home over the weekend. From total ankle arthroplasty perspective, she is stable. She passed a home care assessment visit. Apparently, social work has assessed and they will help with followup in the house two times a week. Otherwise, she feels safe to be discharged home. She is doing well, pain is well-controlled. PHYSICAL EXAMINATION: Well appearing 63-year-old female. Splint is in situ right lower extremity. She is able to wiggle her toes. Toes are warm and well perfused with normal sensation. Drain has been discontinued. ASSESSMENT/PLAN: 63-year-old female should be discharged home today with a followup visit in the office with Dr. Heath.
[2019-01-23] MEDS: MIRALAX *UNIT DOSE* 17GM PACKET PO SCH (09:00)
[2019-01-23] MEDS: MOM 30ML SUSPENSION UDC PO SCH (09:00)
[2019-01-23] MEDS: ATORVASTATIN 20 MG TAB PO SCH (10:06)
[2019-01-23] MEDS: CitaloPRAM (CeleXA) 20 MG TAB PO SCH (10:06)
[2019-01-23] MEDS: DULoxetine 20 MG CAP (CYMBALTA) PO SCH (10:06)
[2019-01-23] MEDS: SENOKOT S TAB PO SCH (10:07)
[2019-01-23] MEDS: OMEPRAZOLE 20 MG CAP PO SCH (10:07)
[2019-01-23] MEDS: TELMISARTAN 20 MG TAB PO SCH (10:07)
[2019-01-23 10:08] VITALS: BP 99/60
--- NOTE | 2019-01-23 21:16 | IPN ---
DATE: 01/23/2019 SUBJECTIVE: No new complaints. OBJECTIVE: The patient's blood pressures have been running low since admission with this morning at 99/60, 92/58 the afternoon of 01/20/2019, highest pressure recorded since admission was 133/81 on 01/19/2019. She has been receiving amlodipine 2.5 twice a day and Micardis. ASSESSMENT: Hypertension. Pressures ranging relatively hypotensive, although currently asymptomatic. PLAN: At this time will discontinue amlodipine and monitor. Resume if pressures are sustained above 130 at one-half the current dose.
--- NOTE | 2019-01-27 05:15 | DSES ---
DATE OF ADMISSION: 01/19/2019 DATE OF DISCHARGE: 01/23/2019 DISCHARGE DIAGNOSIS: 1. Advanced the right ankle arthritis status post right total ankle arthroplasty and Achilles lengthening. HISTORY: This is a 63-year-old male with progressively worsening right ankle pain and stiffness. He had failed to improve with conservative treatment. He elected for surgery for his continued symptoms. PROCEDURE PERFORMED: Right total knee arthroplasty and Achilles lengthening. HOSPITAL COURSE: The patient was admitted on the day of surgery and underwent right total ankle arthroplasty and Achilles lengthening. During her stay, the patient was up with physical therapy per the protocol and her pain was controlled. On the day of discharge, the patient was doing well. She was weightbearing as tolerated to her right lower extremity using her walker. She is going to resume preoperative medications and diet. She will use oral medications for pain control. Additionally, she will followup in the office in two weeks for wound check and staple removal. For further detail, please see the medical record and please CC copies to the patient's PCM and me and Dr. Heath for further review.
--- NOTE | 2019-01-31 20:24 | RO ---
DATE OF PROCEDURE: 01/19/2019 PREPROCEDURE DIAGNOSIS: Right end-stage tibiotalar joint osteoarthritis. POSTPROCEDURE DIAGNOSIS: Right end-stage tibiotalar joint osteoarthritis. PROCEDURE: 1. Right total ankle replacement. 2. Percutaneous total Achilles lengthening. 3. Open fixation medial malleolus. SURGEON: Georgette Heath MD SPORTS TRAINER: Storm Waters MD and BRENDA Monae ANESTHESIA: General endotracheal with popliteal nerve block. ESTIMATED BLOOD LOSS: 200 mL DRAINS: José-Luis (MARCOS) times one. SPECIMEN: Tibial bone cuts. REPLACED: Right ankle. COMPLICATIONS: None. IMPLANTS: Top Hat Infinity size 3 long tibial tray, size 2 Infinity talar dome, and an 8 mm size 2 plus poly insert. INDICATIONS: Lelo Busby is a 63-year-old female who has had long-standing pain due to advanced arthritis in her right ankle joint. The patient has elected for a right total ankle replacement. Risks and benefits of surgery were discussed with the patient in detail and include but are not limited to infection, damage to nerves and blood vessels, continued pain and stiffness, need for additional procedures. Informed consent was obtained prior to the procedure in the office. DESCRIPTION OF PROCEDURE: The patient was met in the preoperative holding area where the right lower extremity was marked as the correct operative site. Patient was then taken to the post-anesthesia care unit (PACU) where a nerve block was performed by the anesthesia team. She was then taken to the operating room where she was placed in the supine position on the operating room table. She underwent general endotracheal anesthesia. A Rutherford was placed and was removed at the end of the case. A bump was placed under the ipsilateral hip and also placed was a well-padded tourniquet on the right thigh. Right lower extremity underwent a chlorhexidine scrub. It was then prepped and draped in the normal sterile fashion. An official time-out was held where the correct patient, operative site and operative procedure were verified. Appropriate radiographs were displayed in the operating room. The tibiotalar joint was approached using an anterior approach. Incision was made directly lateral to the tibialis anterior over the extensor hallucis longus (EHL) tendon towards the talonavicular joint. The superficial peroneal nerve was identified and retracted laterally. A small branch had to be excised which crossed the ankle joint over the medial aspect of the ankle. The retinaculum was incised proximally. There was found to be a large defect in the retinaculum, essentially over the entire aspect of the tibiotalar joint, which was present prior to surgery. The EHL tendon was identified. It was retracted laterally. The tibialis anterior tendon was retracted medially. The neurovascular bundle was identified and gently retracted laterally. All crossing vessels were coagulated. Capsule was then excised using a knife. All soft tissue was removed over the distal tibia and talus using a combination of elevators, curettes, and Bovie cautery. There was one loose osteophyte in the region of the distal fibula that was also removed. At this point, the Prophecy guide was brought into the field. It was placed against the tibia in the same manner as the model. The guide was pinned in place. Radiographs were performed, and these were found to be identical to the Prophecy plan. After the guide was pinned in place, it was removed. The coronal sizing guide was then placed. A size 3 was appropriate. Corners were drilled using the appropriate drill. The coronal sizing guide was removed, and the size 3 cutting guide was placed. At this point, a divergent pin was placed from medial to lateral. Pins were cut flush with the resection guide. The distal tibia was cut using the appropriate saw proximally, medially and laterally. The cutting guide was removed and the corner chisel was used to complete the cut. I was then able to remove the tibia in one piece using the bone removal screw. At this point, attention was turned to the talus. The Infinity guide was placed over the talar dome in the same position as the guide. It was pinned in place. Lateral x-ray was performed and the talar cut was found to be appropriate, as well was the flexion and extension angle. The talar resection guide was used over the pin and pins were cut close to the resection guide. The first talar cut was then performed. At this point, the wound was copiously irrigated. Gutters were cleaned with a skinny rongeur. I also used a reciprocal saw to remove bone from the medial and lateral aspect of the talus to ensure that there was sufficient space at the gutters. Next, the tibial trial was placed over the pins. The lamina bench lathe operator was used to secure the trial against the tibial bone without any liftoff posteriorly. A size 3 long was appropriate. Broaching was performed. Following this, a 6 mm trial poly was inserted. The trial talar component was placed. This did appear to be quite tight. There was fairly minimal cut using the Prophecy guide. At this point, a variety of different techniques were used to further cut down the talus. We did try the 2 mm guide, but this was not enough bone. Finally, did require me to freehand a larger cut using the talar pins that were still in place as a guide. I also did percutaneous Achilles lengthening at this time to gain further access to the joint. This was done with three stab incisions over the Achilles running medial then lateral then medial, each space 2 cm apart. We did gain nice correction using the percutaneous Achilles lengthening. I was able to get the talar trial in appropriate position, and this was pinned in place. The chamfer guide was placed and the posterior chamfer was cut. I did then ream anteriorly for the anterior chamfer. The tibial tray was put back on as long as the trial for the talus and the 6 mm poly. I did trial both the 6 mm and the 8 mm poly and was satisfied with the 8 mm insert. At this point, all components were removed and copious irrigation was performed again. The final tibia was then placed and using the impactor, was secured in the three prior broach holes. Lateral x-ray was periodically checked while the tibial component was being implanted to ensure proper placement. Following this, the Infinity talus was then implanted, again using the impactor. An 8 mm polyethylene was then implanted using the appropriate device. The patient was taken through a range of motion, and she had at least 15 degrees of dorsiflexion and 25-30 degrees of plantar flexion. Multiple x-rays were performed and alignment of the implants were found to be satisfactory on AP, mortise and lateral views. The implants did sit slightly anterior on the lateral view; however, this was in line with the Prophecy plan. At this point, the capsule was closed using #0 Vicryl. A drain was implanted. I was able to close the retinaculum both proximally and distally; however, again it was incompetent throughout the main midportion of the incision. Following this, skin was closed using #3-0 Vicryl and #3-0 nylon. The tourniquet had been let down after 150 minutes. After the skin was closed, I did proceed with a percutaneous 3.5 mm cannulated screw at the medial malleolus using the Synthes cannulated screw set. This was done to protect the medial malleolus. Final x-rays were performed and found to be satisfactory on AP, lateral and mortise views. At this point, the medial malleolar incision was closed using #3-0 Vicryl and #3-0 nylon. The percutaneous Achilles wounds were also closed using a single nylon stitch. Well-padded dressing was then applied. The patient was placed into a well-padded splint as well. She was then extubated and transferred to the recovery room in stable condition. PLAN: The patient will be admitted to the hospital for 24 hours for IV antibiotics. Drain will likely be removed postop day #1. She will be on Eliquis for deep vein thrombosis (DVT) prophylaxis. She does have estrogen implants, although has no history of a DVT.
== END 2019-01-23 11:25 | disposition home health service (06) | DRG 313 ==
LOC: M OR 05:44 → M MS5PR 15:49
PROVIDERS: ADMIT Orthopaedic Surgery; ATTEND Orthopaedic Surgery
PROC: 0QSG0ZZ Reposition Right Tibia, Open Approach (ICD-10-PCS; 2019-01-19)
PROC: 0SRF0JZ Replacement of Right Ankle Joint with Synthetic Substitute, Open Approach (ICD-10-PCS; principal; 2019-01-19 07:30)
DX: M19.071 Primary osteoarthritis, right ankle and foot (principal); I95.9 Hypotension, unspecified; D51.9 Vitamin B12 deficiency anemia, unspecified; Z68.41 Body mass index [BMI] 40.0-44.9, adult; F32.9 Major depressive disorder, single episode, unspecified; E66.9 Obesity, unspecified; K21.0 Gastro-esophageal reflux disease with esophagitis; D50.9 Iron deficiency anemia, unspecified; R73.01 Impaired fasting glucose; E78.5 Hyperlipidemia, unspecified; J45.20 Mild intermittent asthma, uncomplicated; I10 Essential (primary) hypertension; M85.80 Other specified disorders of bone density and structure, unspecified site; E55.9 Vitamin D deficiency, unspecified; D17.0 Benign lipomatous neoplasm of skin and subcutaneous tissue of head, face and neck; J32.9 Chronic sinusitis, unspecified; Z79.82 Long term (current) use of aspirin; Z79.899 Other long term (current) drug therapy; Z87.891 Personal history of nicotine dependence

== ENCOUNTER → 2019-02-06 | Outpatient (REF) | payer OTHER ==
[~2019-02-06] MED LIST changes: +ACET-683 PO; +DULO1CAP4 PO; +LEVOTAB10 PO; +OXYC-517 PO; +XARE10TA PO
[2019-02-06 15:29] LABS: ESTRADIOL 34.3 PG/ML; LUTEINIZING HORMONE 2.1 mIU/mL; PROGESTERONE 0.21 NG/ML
[2019-02-08 00:06] LABS: TESTOSTERONE FREE (DIRECT) 2.6 pg/mL (0.0-4.2)
== END ==
LOC: M LAB REF 13:25 → M SHH 13:25
PROVIDERS: ATTEND Obstetrics & Gynecology
DX: N95.1 Menopausal and female climacteric states (principal); E34.9 Endocrine disorder, unspecified; R53.83 Other fatigue

== ENCOUNTER → 2019-06-12 | Outpatient (CLI) | payer OTHER ==
[~2019-06-12] MED LIST changes: -OMEP40CA2 PO; +OMEP40CA97 PO; -PYRI100T2 PO; +VITA100T82 PO
[2019-06-12 14:30] LABS: BASO # 0.1 10^3/uL (0.0-0.2); BASO % 0.6 % (0.0-1.0); EOS # 0.2 10^3/uL (0.0-0.5); EOS % 2.8 % (0.0-3.0); HEMOGLOBIN 13.3 g/dl (12.0-15.5); LYMPH # 2.4 10^3/uL (1.5-5.0); LYMPH % 30.1 % (24.0-44.0); MEAN CORPUSCULAR HEMOGLOBIN 27.1 pg (27.0-33.0); MEAN CORPUSCULAR HGB CONC 30.9 g/dl (32.0-36.5); MEAN CORPUSCULAR VOLUME 87.6 fl (80.0-96.0); MONO # 0.5 10^3/uL (0.0-0.8); MONO % 5.8 % (0.0-5.0); NEUTROPHILS # 4.8 10^3/uL (1.5-8.5); NEUTROPHILS % 60.4 % (36.0-66.0); PLATELET COUNT, AUTOMATED 296 10^3/uL (150-450); RED BLOOD COUNT 4.91 10^6/uL (4.00-5.40)
[2019-06-12 14:38] LABS: ALBUMIN 3.9 GM/DL (3.2-5.2); ALT/SGPT 16 U/L (12-78); BILIRUBIN,TOTAL 0.6 MG/DL (0.2-1.0); BLOOD UREA NITROGEN 12 MG/DL (7-18); CALCIUM LEVEL 8.6 MG/DL (8.8-10.2); CARBON DIOXIDE LEVEL 24 MEQ/L (21-32); CHLORIDE LEVEL 108 MEQ/L (98-107); CREATININE FOR GFR 0.72 MG/DL (0.55-1.30); GLOMERULAR FILTRATION RATE > 60.0 (>45); GLUCOSE, FASTING 86 MG/DL (70-100); POTASSIUM SERUM 4.5 MEQ/L (3.5-5.1); SODIUM LEVEL 140 MEQ/L (136-145); TOTAL PROTEIN 6.7 GM/DL (6.4-8.2)
[2019-06-12 14:46] LABS: PTH INTACT 157.4 PG/ML (18.5-88.0)
[2019-06-12 15:53] LABS: TOTAL 25(OH) VITAMIN D 45.2 NG/ML (30.0-100.0)
[2019-06-12 16:36] LABS: HEMOGLOBIN A1c 5.3 %
== END ==
LOC: M PLALAB 09:41
PROVIDERS: ATTEND Family Medicine
DX: M85.80 Other specified disorders of bone density and structure, unspecified site (principal); D50.9 Iron deficiency anemia, unspecified; R73.01 Impaired fasting glucose

== ENCOUNTER → 2019-10-30 | Outpatient (REF) | payer OTHER ==
[~2019-10-30] MED LIST changes: -TELM1TAB PO; +TELM1TAB35 PO
[2019-10-30 10:54] LABS: APPEARANCE, URINE CLEAR (CLEAR); BACTERIA, URINE AUTO NEGATIVE (NEGATIVE); BILIRUBIN, URINE AUTO NEGATIVE (NEGATIVE); BLOOD, URINE BLOOD NEGATIVE (NEGATIVE); COLOR, URINE YELLOW (YELLOW); GLUCOSE, URINE (UA) AUTO NEGATIVE (NEGATIVE); HEMATOCRIT 40.7 % (36.0-47.0); HEMOGLOBIN 13.2 g/dl (12.0-15.5); KETONE, URINE AUTO NEGATIVE (NEGATIVE); LEUKOCYTE ESTERASE, URINE AUTO NEGATIVE (NEGATIVE); MEAN CORPUSCULAR VOLUME 87.7 fl (80.0-96.0); MUCUS, URINE SMALL (NEGATIVE); NITRITE, URINE AUTO NEGATIVE (NEGATIVE); PROTEIN, URINE AUTO NEGATIVE (NEGATIVE); RBC, URINE AUTO 0 /HPF (0-3); RED BLOOD COUNT 4.64 10^6/uL (4.00-5.40); SPECIFIC GRAVITY URINE AUTO 1.017 (1.002-1.035); SQUAMOUS EPITHELIAL CELL UR AU 9 /HPF (0-6); UROBILINOGEN, URINE AUTO 0.2 mg/dL (0.0-2.0); WBC, URINE AUTO 2 /HPF (0-3); WHITE BLOOD COUNT 7.6 10^3/uL (4.0-10.0)
[2019-10-30 10:55] LABS: BASO # 0.1 10^3/uL (0.0-0.2); BASO % 0.7 % (0.0-1.0); EOS # 0.2 10^3/uL (0.0-0.5); EOS % 2.1 % (0.0-3.0); LYMPH # 2.1 10^3/uL (1.5-5.0); MEAN CORPUSCULAR HEMOGLOBIN 28.4 pg (27.0-33.0); MEAN CORPUSCULAR HGB CONC 32.4 g/dl (32.0-36.5); MONO # 0.5 10^3/uL (0.0-0.8); MONO % 6.2 % (0.0-5.0); NEUTROPHILS # 4.9 10^3/uL (1.5-8.5); NEUTROPHILS % 63.7 % (36.0-66.0); PLATELET COUNT, AUTOMATED 268 10^3/uL (150-450)
[2019-10-30 11:09] LABS: ALBUMIN 3.5 GM/DL (3.2-5.2); ALT/SGPT 22 U/L (12-78); BILIRUBIN,TOTAL 0.6 MG/DL (0.2-1.0); BLOOD UREA NITROGEN 11 MG/DL (7-18); CALCIUM LEVEL 8.3 MG/DL (8.8-10.2); CARBON DIOXIDE LEVEL 29 MEQ/L (21-32); CHLORIDE LEVEL 107 MEQ/L (98-107); CHOLESTEROL LEVEL 147 MG/DL (<200); CHOLESTEROL RISK RATIO 2.194 (<5); CREATININE FOR GFR 0.59 MG/DL (0.55-1.30); GLOMERULAR FILTRATION RATE > 60.0 (>45); GLUCOSE, FASTING 84 MG/DL (70-100); HDL CHOLESTEROL 67 MG/DL (>40); LDL CHOLESTEROL 64 MG/DL (<100); NON-HDL-C 80 MG/DL; POTASSIUM SERUM 4.5 MEQ/L (3.5-5.1); SODIUM LEVEL 143 MEQ/L (136-145); TOTAL PROTEIN 6.5 GM/DL (6.4-8.2); TRIGLYCERIDES LEVEL 81 MG/DL (<150)
[2019-10-30 11:12] LABS: HEMOGLOBIN A1c 5.6 %
[2019-10-30 11:31] LABS: MALB URINE SIEMENS 9.4 MG/L; MAU/CREAT RATIO 6.3 MCG/MG (0.0-30.0)
== END ==
LOC: M PLALAB 09:04
PROVIDERS: ATTEND Family Medicine
DX: R73.01 Impaired fasting glucose (principal); D50.9 Iron deficiency anemia, unspecified; E78.5 Hyperlipidemia, unspecified

== ENCOUNTER → 2019-11-11 | Outpatient (CLI) | payer OTHER ==
--- NOTE | 2019-11-12 16:21 | REP ---
Five views lumbar spine: 11/11/2019. Indication: Low back pain. Comparison: 11/03/2017. Findings: There is no acute fracture, subluxation or dislocation. There is narrowing of the intervertebral disc space at L5/S1 as well as the 04/2001 and L1/L2. No lytic or blastic lesions are present. Alignment is near anatomic. Impression: No acute osseous injury of the lumbar spine. Electronically Signed by Cyrus Waddell DO 11/12/2019 04:12 P
== END ==
LOC: M RAD 11:35
PROVIDERS: ATTEND Family Medicine
DX: M47.816 Spondylosis without myelopathy or radiculopathy, lumbar region (principal)

== ENCOUNTER → 2020-01-24 | Outpatient (REF) | payer OTHER ==
[~2020-01-24] MED LIST changes: +CYAN500T10 SL; -CYAN500T9 SL
== END ==
LOC: M LAB REF 12:00
PROVIDERS: ATTEND Ophthalmology
DX: H02.413 Mechanical ptosis of bilateral eyelids (principal)

== ENCOUNTER → 2020-04-01 | Outpatient (REF) | payer MEDICARE ==
[2020-04-01 13:51] LABS: BASO % 0.6 % (0.0-1.0); EOS # 0.2 10^3/uL (0.0-0.5); EOS % 2.8 % (0.0-3.0); HEMATOCRIT 41.7 % (36.0-47.0); HEMOGLOBIN 12.8 g/dl (12.0-15.5); LYMPH # 1.7 10^3/uL (1.5-5.0); LYMPH % 26.1 % (24.0-44.0); MEAN CORPUSCULAR HEMOGLOBIN 27.5 pg (27.0-33.0); MEAN CORPUSCULAR HGB CONC 30.7 g/dl (32.0-36.5); MEAN CORPUSCULAR VOLUME 89.5 fl (80.0-96.0); MONO # 0.4 10^3/uL (0.0-0.8); MONO % 6.8 % (0.0-5.0); NEUTROPHILS # 4.1 10^3/uL (1.5-8.5); NEUTROPHILS % 63.5 % (36.0-66.0); PLATELET COUNT, AUTOMATED 284 10^3/uL (150-450); RED BLOOD COUNT 4.66 10^6/uL (4.00-5.40); WHITE BLOOD COUNT 6.5 10^3/uL (4.0-10.0)
[2020-04-01 18:47] LABS: ALBUMIN 3.7 GM/DL (3.2-5.2); ALT/SGPT 20 U/L (12-78); BILIRUBIN,TOTAL 0.6 MG/DL (0.2-1.0); BLOOD UREA NITROGEN 14 MG/DL (7-18); CALCIUM LEVEL 8.6 MG/DL (8.8-10.2); CARBON DIOXIDE LEVEL 31 MEQ/L (21-32); CHLORIDE LEVEL 106 MEQ/L (98-107); CREATININE FOR GFR 0.71 MG/DL (0.55-1.30); FREE T4 0.92 NG/DL (0.76-1.46); GLOMERULAR FILTRATION RATE > 60.0 (>45); GLUCOSE, FASTING 84 MG/DL (70-100); POTASSIUM SERUM 4.8 MEQ/L (3.5-5.1); SODIUM LEVEL 140 MEQ/L (136-145); TOTAL PROTEIN 6.7 GM/DL (6.4-8.2)
[2020-04-01 18:49] LABS: PTH INTACT 138.7 PG/ML (18.5-88.0); TOTAL 25(OH) VITAMIN D 32.2 NG/ML (30.0-100.0)
[2020-04-01 18:50] LABS: VITAMIN B12 LEVEL 694 PG/ML (247-911)
[2020-04-01 20:20] LABS: HEMOGLOBIN A1c 5.6 %
== END ==
LOC: M PLALAB 09:46
PROVIDERS: ATTEND Family Medicine
DX: D51.8 Other vitamin B12 deficiency anemias (principal); R73.01 Impaired fasting glucose; E78.5 Hyperlipidemia, unspecified; E55.9 Vitamin D deficiency, unspecified; Z79.899 Other long term (current) drug therapy

== ENCOUNTER → 2020-10-29 | Outpatient (REF) | payer MEDICARE ==
[~2020-10-29] MED LIST changes: -CYAN500T10 SL; +VITA500T37 SL
[2020-10-29 13:51] LABS: BASO # 0.1 10^3/uL (0.0-0.2); BASO % 0.8 % (0.0-1.0); EOS # 0.2 10^3/uL (0.0-0.5); EOS % 2.5 % (0.0-3.0); HEMATOCRIT 40.9 % (36.0-47.0); HEMOGLOBIN 12.8 g/dl (12.0-15.5); LYMPH # 2.2 10^3/uL (1.5-5.0); LYMPH % 28.1 % (24.0-44.0); MEAN CORPUSCULAR HEMOGLOBIN 27.6 pg (27.0-33.0); MEAN CORPUSCULAR HGB CONC 31.3 g/dl (32.0-36.5); MEAN CORPUSCULAR VOLUME 88.1 fl (80.0-96.0); MONO # 0.5 10^3/uL (0.0-0.8); NEUTROPHILS # 4.9 10^3/uL (1.5-8.5); NEUTROPHILS % 62.3 % (36.0-66.0); PLATELET COUNT, AUTOMATED 243 10^3/uL (150-450); RED BLOOD COUNT 4.64 10^6/uL (4.00-5.40); WHITE BLOOD COUNT 7.9 10^3/uL (4.0-10.0)
[2020-10-29 14:26] LABS: HEMOGLOBIN A1c 5.4 %
[2020-10-29 15:33] LABS: ALBUMIN 3.8 GM/DL (3.2-5.2); ALT/SGPT 18 U/L (12-78); BILIRUBIN,TOTAL 0.6 MG/DL (0.2-1.0); BLOOD UREA NITROGEN 14 MG/DL (7-18); CALCIUM LEVEL 9.3 MG/DL (8.8-10.2); CARBON DIOXIDE LEVEL 29 MEQ/L (21-32); CHLORIDE LEVEL 106 MEQ/L (98-107); CHOLESTEROL LEVEL 155 MG/DL (<200); CHOLESTEROL RISK RATIO 2.583 (<5); CPK CREATINE PHOSPHOKINASE 74 U/L (26-192); CREATININE FOR GFR 0.72 MG/DL (0.55-1.30); FERRITIN 26 NG/ML (8-252); GLOMERULAR FILTRATION RATE > 60.0 (>45); GLUCOSE, FASTING 83 MG/DL (70-100); HDL CHOLESTEROL 60 MG/DL (>40); LDL CHOLESTEROL 73 MG/DL (<100); NON-HDL-C 95 MG/DL; POTASSIUM SERUM 4.5 MEQ/L (3.5-5.1); SODIUM LEVEL 139 MEQ/L (136-145); THYROID PEROXIDASE ANTIBODY 33.7 U/ML (<60.0); TOTAL PROTEIN 6.8 GM/DL (6.4-8.2); TRIGLYCERIDES LEVEL 109 MG/DL (<150)
== END ==
LOC: M PLALAB 09:40
PROVIDERS: ATTEND Family Medicine
DX: D50.9 Iron deficiency anemia, unspecified (principal); R73.01 Impaired fasting glucose; E55.9 Vitamin D deficiency, unspecified; E78.5 Hyperlipidemia, unspecified

== ENCOUNTER → 2020-12-23 | Outpatient (CLI) | payer MEDICARE, MEDICAID ==
[~2020-12-23] MED LIST changes: +OMEP40CA4 PO; -OMEP40CA97 PO
--- NOTE | 2020-12-23 15:10 | REPMRS ---
Patient History The patient states she has not had a clinical breast exam in over a year. Family history of breast cancer at age 50 or over in maternal aunt. Took estrogen for 1 year. Took unspecified hormones for 5 years 1 month. Patient states no breast complaints today. Patient has signed MRS History Sheet. Digital Woman Screen Mammo: December 23, 2020 - Exam #: [id number] Bilateral CC and MLO view(s) were taken. Technologist: Sara Solano, Technologist Prior study comparison: December 21, 2019, bilateral digital woman screen mammo performed at [facility]. December 19, 2018, bilateral digital woman screen mammo performed at [facility]. FINDINGS: The breast tissue is almost entirely fat. Screening. Digital screening (2D) mammography was performed bilaterally in the CC and MLO projections. Additionally, breast tomosynthesis (3D mammography) was performed bilaterally in the CC and MLO projections. Todays exam was compared to the prior exam/exams. By history, the patient has no complaints of a palpable breast abnormality or other significant breast complaints. The breasts are unchanged in size and shape. There are no guy-soft tissue densities or spiculated masses. There is no internal architectural distortion. There are no suspicious guy-calcific clusters. Skin thickening or nipple retraction is not present. IMPRESSION: BI-RADS Category 2- Benign Findings. There is no evidence of malignant alteration of the breasts. Followup examination recommended in one year. The Volpara volumetric breast density category is A, the breasts are almost entirely fatty. This mammogram was read with the assistance of Angie Hittahem,an FDA approved computer aided detection system for mammography. The lifetime Tyrer-Cuzick score is 8.4 % Negative x-ray reports should not delay surgical consultation if a dominant or clinically suspicious mass is present. Not all breast cancers can be identified by mammography. Therefore, we recommend that you continue to perform regular breast self-examination and physical examination and then promptly contact your physician of any concerns or changes. Adenosis and dense breasts may obscure an underlying neoplasm. Assessment: BI-RADS/ACR category 2 mammogram. Benign Findings. Recommendation Routine screening mammogram of both breasts in 1 year. Electronically Signed By: Ozzie Nathan DO 12/23/20 [id number]
--- NOTE | 2020-12-23 15:35 | DEXAMM ---
INDICATION: M85.80 OSTEOPENIA. COMPARISON: Most recent comparison study is from December 19, 2018.. TECHNIQUE: Bone density was measured using dual-energy x-ray absorptionmetry (DEXA). FINDINGS: AP SPINE L1-L4 BMD 1.126 g/cm2 Young Adult T-Score -0.4 Age Matched Z-Score 1.1. LT FEMUR, TOTAL BMD 0.983 g/cm2 Young Adult T-Score -0.2 Age Matched Z-Score 1.0. LT NECK BMD 0.859 g/cm2 Young Adult T-Score -1.3 Age Matched Z-Score 0.2. RT FEMUR, TOTAL BMD 0.932 g/cm2 Young Adult T-Score -0.6 Age Matched Z-Score 0.6. RT NECK BMD 0.842 g/cm2 Young Adult T-Score -1.4 Age Matched Z-Score 0.1. IMPRESSION: There is normal bone density of the spine. There is low bone density of the left hip. There is low bone density of the right hip. The density of the spine has increased 11.0% since the initial exam on 02/08/2001. The density of the spine increased 6.5% since most recent exam on December 19, 2018. The density of the left hip has decreased 5.6% since initial exam on 02/08/2001. The density of the left hip has decreased 0.2% since most recent exam on December 19, 2018. The density of the right hip has decreased 5.5% since the initial exam on 02/08/2001. The density of the right hip has increased 2.5% since the most recent exam on December 19, 2018. FOLLOW-UP: Recommendation for the next bone density exam: 2 years. <Electronically signed by Dion Milton > 12/23/20 [id number]
== END ==
LOC: M WHC 14:03
PROVIDERS: ATTEND Family Medicine
DX: Z12.31 Encounter for screening mammogram for malignant neoplasm of breast (principal); M85.852 Other specified disorders of bone density and structure, left thigh

== ENCOUNTER → 2021-03-01 | Outpatient (CLI) | payer MEDICAID, MEDICARE | LOC: M LABSMTC 09:17 | PROVIDERS: ATTEND Pediatrics | DX: Z20.822 Contact with and (suspected) exposure to COVID-19 (principal) | CPT/HCPCS: C9803; U0003 ==

== ENCOUNTER 2021-03-07 08:59 | Outpatient (CLI) | payer MEDICARE ==
[~2021-03-07 08:59] MED LIST changes: +ALBUTEROL 90 MCG/ACT 8GM HFA INHALER INH PRN; +ALBUTEROL SULFATE 2.5 MG/0.5 ML INH NEB SOLN INH PRN; +EPINEPHrine INJ 1 MG/ML 1ML AMP IM PRN; +NS 1,000 ML IV SCH; +UNRESOLVED CLARIFICATION ENTRY XX SCH; +diphenhydrAMINE 50MG/ML VIAL (J1200) IV PRN; +methylPREDNISolone 125MG 2ML VIAL IV PRN
[2021-03-07] MEDS ORDERED: CASIRIVIMAB/IMDEVIMAB 1,200 MG in NS 250 ML IV ONE (09:00)
[2021-03-07] MEDS ORDERED: CASIRIVIMAB (REGN10933) 600 MG, IMDEVIMAB (REGN10987) 600 MG in NS 250 ML IV ONE (09:00)
[2021-03-07 09:27] VITALS: BP 130/63
[2021-03-07 10:29] VITALS: BP 123/62
[2021-03-07 11:02] VITALS: BP 117/54
[2021-03-07 11:38] VITALS: BP 135/64
[2021-03-07 12:40] VITALS: BP 135/64
== END 2021-03-07 12:48 | disposition home or self-care (01) ==
LOC: M OPCLI4PR 08:59 → M MS4PR 09:05 → M OPCLI4PR 12:48
PROVIDERS: ATTEND Physician Assistant
DX: U07.1 COVID-19 (principal)

== ENCOUNTER → 2021-04-04 | Outpatient (CLI) | payer MEDICARE, OTHER ==
[~2021-04-04] MED LIST changes: -ALBUTEROL 90 MCG/ACT 8GM HFA INHALER INH PRN; -ALBUTEROL SULFATE 2.5 MG/0.5 ML INH NEB SOLN INH PRN; -EPINEPHrine INJ 1 MG/ML 1ML AMP IM PRN; -NS 1,000 ML IV SCH; -UNRESOLVED CLARIFICATION ENTRY XX SCH; -diphenhydrAMINE 50MG/ML VIAL (J1200) IV PRN; -methylPREDNISolone 125MG 2ML VIAL IV PRN
[2021-04-04 10:55] LABS: MALB URINE SIEMENS 20.8 MG/L; MAU/CREAT RATIO 8.2 MCG/MG (0.0-30.0)
[2021-04-04 11:00] LABS: HEMOGLOBIN A1c 5.5 %
[2021-04-04 11:02] LABS: ALBUMIN 3.8 GM/DL (3.2-5.2); ALT/SGPT 22 U/L (12-78); BILIRUBIN,TOTAL 0.7 MG/DL (0.2-1.0); BLOOD UREA NITROGEN 11 MG/DL (7-18); CARBON DIOXIDE LEVEL 30 MEQ/L (21-32); CHLORIDE LEVEL 103 MEQ/L (98-107); CREATININE FOR GFR 0.93 MG/DL (0.55-1.30); FREE T4 1.01 NG/DL (0.76-1.46); GLOMERULAR FILTRATION RATE > 60.0 (>45); GLUCOSE, FASTING 93 MG/DL (70-100); PTH INTACT 63.5 PG/ML (18.5-88.0); SODIUM LEVEL 142 MEQ/L (136-145); TOTAL 25(OH) VITAMIN D 56.7 NG/ML (30.0-100.0); TOTAL PROTEIN 7.3 GM/DL (6.4-8.2)
== END ==
LOC: M PLALAB 08:35
PROVIDERS: ATTEND Family Medicine
DX: R73.01 Impaired fasting glucose (principal); E78.5 Hyperlipidemia, unspecified; E55.9 Vitamin D deficiency, unspecified

== ENCOUNTER → 2021-06-11 | Outpatient (CLI) | payer MEDICARE | LOC: M PLAIMG 14:39 | PROVIDERS: ATTEND Physician Assistant | DX: S92.512A Displaced fracture of proximal phalanx of left lesser toe(s), initial encounter for closed fracture (principal); W22.09XA Striking against other stationary object, initial encounter; Y92.9 Unspecified place or not applicable; Y99.9 Unspecified external cause status; M77.32 Calcaneal spur, left foot | CPT/HCPCS: 73630; G0463 ==

== ENCOUNTER → 2021-08-19 | Outpatient (CLI) | payer MEDICARE, MEDICAID ==
[2021-08-19 14:04] LABS: BLOOD UREA NITROGEN 11 MG/DL (7-18); CREATININE FOR GFR 0.72 MG/DL (0.55-1.30); GLUCOSE, FASTING 87 MG/DL (70-100)
[2021-08-19 14:05] LABS: ALBUMIN 3.9 GM/DL (3.2-5.2); ALT/SGPT 24 U/L (12-78); BILIRUBIN,TOTAL 0.5 MG/DL (0.2-1.0); CALCIUM LEVEL 9.3 MG/DL (8.8-10.2); CARBON DIOXIDE LEVEL 33 MEQ/L (21-32); CHLORIDE LEVEL 108 MEQ/L (98-107); GLOMERULAR FILTRATION RATE > 60.0 (>45); NT-PRO BNP 89 PG/ML (<125); POTASSIUM SERUM 5.1 MEQ/L (3.5-5.1); SODIUM LEVEL 144 MEQ/L (136-145); TOTAL PROTEIN 6.9 GM/DL (6.4-8.2)
[2021-08-19 14:12] LABS: TOTAL 25(OH) VITAMIN D 58.6 NG/ML (30.0-100.0)
[2021-08-19 14:29] LABS: HEMOGLOBIN A1c 5.8 %
== END ==
LOC: M PLALAB 09:19
PROVIDERS: ATTEND Family Medicine
DX: I10 Essential (primary) hypertension (principal)

== ENCOUNTER → 2021-12-30 | Outpatient (CLI) | payer MEDICARE, MEDICAID ==
[~2021-12-30] MED LIST changes: +ALBU2.5V10 INH; -ALBU83IN INH
== END ==
LOC: M WHC 14:43
PROVIDERS: ATTEND Family Medicine
DX: Z12.31 Encounter for screening mammogram for malignant neoplasm of breast (principal)

== ENCOUNTER → 2022-02-03 | Outpatient (CLI) | payer MEDICARE, MEDICAID ==
[2022-02-03 11:03] LABS: BASO # 0.1 10^3/uL (0.0-0.2); BASO % 0.6 % (0.0-1.0); EOS # 0.2 10^3/uL (0.0-0.5); EOS % 2.7 % (0.0-3.0); HEMATOCRIT 41.5 % (36.0-47.0); HEMOGLOBIN 12.8 g/dl (12.0-15.5); LYMPH # 2.1 10^3/uL (1.5-5.0); LYMPH % 23.3 % (24.0-44.0); MEAN CORPUSCULAR HEMOGLOBIN 26.8 pg (27.0-33.0); MEAN CORPUSCULAR HGB CONC 30.8 g/dl (32.0-36.5); MONO # 0.5 10^3/uL (0.0-0.8); NEUTROPHILS # 6.1 10^3/uL (1.5-8.5); NEUTROPHILS % 67.2 % (36.0-66.0); PLATELET COUNT, AUTOMATED 289 10^3/uL (150-450); RED BLOOD COUNT 4.77 10^6/uL (4.00-5.40)
[2022-02-03 11:26] LABS: HEMOGLOBIN A1c 5.6 %
[2022-02-03 11:46] LABS: ALBUMIN 3.7 GM/DL (3.2-5.2); ALT/SGPT 18 U/L (12-78); BILIRUBIN,TOTAL 0.5 MG/DL (0.2-1.0); BLOOD UREA NITROGEN 13 MG/DL (7-18); CALCIUM LEVEL 9.3 MG/DL (8.8-10.2); CARBON DIOXIDE LEVEL 30 MEQ/L (21-32); CHLORIDE LEVEL 104 MEQ/L (98-107); CHOLESTEROL LEVEL 166 MG/DL (<200); CHOLESTEROL RISK RATIO 2.677 (<5); CREATININE FOR GFR 0.69 MG/DL (0.55-1.30); FERRITIN 16 NG/ML (8-252); GLOMERULAR FILTRATION RATE > 60.0 (>45); GLUCOSE, FASTING 79 MG/DL (70-100); HDL CHOLESTEROL 62 MG/DL (>40); LDL CHOLESTEROL 88 MG/DL (<100); NON-HDL-C 104 MG/DL; POTASSIUM SERUM 4.5 MEQ/L (3.5-5.1); SODIUM LEVEL 139 MEQ/L (136-145); TOTAL PROTEIN 6.7 GM/DL (6.4-8.2); TRIGLYCERIDES LEVEL 81 MG/DL (<150)
== END ==
LOC: M PLALAB 08:47
PROVIDERS: ATTEND Family Medicine
DX: R73.01 Impaired fasting glucose (principal); D50.9 Iron deficiency anemia, unspecified; E78.5 Hyperlipidemia, unspecified

== ENCOUNTER → 2022-03-16 | Outpatient (CLI) | payer MEDICARE, OTHER | LOC: M PLAIMG 15:34 | PROVIDERS: ATTEND Physician Assistant | DX: M19.041 Primary osteoarthritis, right hand (principal); M19.042 Primary osteoarthritis, left hand ==

== ENCOUNTER → 2022-07-09 | Outpatient (CLI) | payer MEDICARE, OTHER ==
[2022-07-09 13:06] LABS: BASO # 0.1 10^3/uL (0.0-0.2); BASO % 0.7 % (0.0-1.0); EOS # 0.2 10^3/uL (0.0-0.5); EOS % 2.9 % (0.0-3.0); HEMATOCRIT 41.1 % (36.0-47.0); HEMOGLOBIN 12.8 g/dl (12.0-15.5); LYMPH % 26.4 % (24.0-44.0); MEAN CORPUSCULAR HEMOGLOBIN 27.1 pg (27.0-33.0); MEAN CORPUSCULAR HGB CONC 31.1 g/dl (32.0-36.5); MEAN CORPUSCULAR VOLUME 87.1 fl (80.0-96.0); MONO # 0.5 10^3/uL (0.0-0.8); MONO % 6.8 % (2.0-8.0); NEUTROPHILS # 4.8 10^3/uL (1.5-8.5); NEUTROPHILS % 62.8 % (36.0-66.0); PLATELET COUNT, AUTOMATED 262 10^3/uL (150-450); RED BLOOD COUNT 4.72 10^6/uL (4.00-5.40); WHITE BLOOD COUNT 7.7 10^3/uL (4.0-10.0)
[2022-07-09 13:28] LABS: HEMOGLOBIN A1c 5.2 % (4.0-6.0)
[2022-07-09 13:33] LABS: ALBUMIN 3.7 G/DL (3.2-5.2); ALKALINE PHOSPHATASE 90 U/L (46-116); ALT/SGPT 15 U/L (7.0-40); AST/SGOT 16 U/L (<34); BILIRUBIN,TOTAL 0.6 MG/DL (0.3-1.2); BLOOD UREA NITROGEN 18 MG/DL (9-23); CALCIUM LEVEL 9.6 MG/DL (8.3-10.6); CARBON DIOXIDE LEVEL 31 MMOL/L (20-31); CHLORIDE LEVEL 105 MMOL/L (98-107); CREATININE FOR GFR 0.74 MG/DL (0.55-1.30); GLOMERULAR FILTRATION RATE > 60.0 (>45); GLUCOSE, FASTING 81 MG/DL (74-106); MAGNESIUM LEVEL 2.3 MG/DL (1.8-2.4); POTASSIUM SERUM 4.3 MMOL/L (3.5-5.1); PTH INTACT 56.8 PG/ML (18.5-88.0); SODIUM LEVEL 143 MMOL/L (136-145); TOTAL 25(OH) VITAMIN D 50.2 NG/ML (20.0-100.0); TOTAL PROTEIN 6.4 G/DL (5.7-8.2)
[2022-07-09 13:34] LABS: VITAMIN B12 LEVEL 540 PG/ML (211-911)
== END ==
LOC: M PLALAB 09:21
PROVIDERS: ATTEND Family Medicine
DX: E55.9 Vitamin D deficiency, unspecified (principal); R73.01 Impaired fasting glucose; D50.9 Iron deficiency anemia, unspecified; D51.8 Other vitamin B12 deficiency anemias; I10 Essential (primary) hypertension; Z79.899 Other long term (current) drug therapy

== ENCOUNTER → 2022-07-16 | Outpatient (CLI) | payer MEDICARE, OTHER | LOC: M PLAIMG 15:18 | PROVIDERS: ATTEND Family Medicine | DX: R43.0 Anosmia (principal) ==

== ENCOUNTER → 2022-07-16 | Outpatient (REF) | payer MEDICARE, OTHER | LOC: M SFHCPLAZ 16:46 | PROVIDERS: ATTEND Physician Assistant | DX: Z20.822 Contact with and (suspected) exposure to COVID-19 (principal) ==

== ENCOUNTER → 2022-12-11 | Outpatient (CLI) | payer MEDICARE, OTHER ==
[2022-12-11 10:57] LABS: BASO # 0.1 10^3/uL (0.0-0.2); BASO % 0.6 % (0.0-1.0); EOS # 0.4 10^3/uL (0.0-0.5); EOS % 4.4 % (0.0-3.0); HEMATOCRIT 41.4 % (36.0-47.0); LYMPH # 2.2 10^3/uL (1.5-5.0); LYMPH % 22.8 % (24.0-44.0); MEAN CORPUSCULAR HEMOGLOBIN 27.2 pg (27.0-33.0); MEAN CORPUSCULAR HGB CONC 31.4 g/dl (32.0-36.5); MEAN CORPUSCULAR VOLUME 86.6 fl (80.0-96.0); MONO # 0.6 10^3/uL (0.0-0.8); MONO % 6.3 % (2.0-8.0); NEUTROPHILS # 6.2 10^3/uL (1.5-8.5); NEUTROPHILS % 65.7 % (36.0-66.0); PLATELET COUNT, AUTOMATED 301 10^3/uL (150-450); RED BLOOD COUNT 4.78 10^6/uL (4.00-5.40); WHITE BLOOD COUNT 9.5 10^3/uL (4.0-10.0)
[2022-12-11 11:13] LABS: HEMOGLOBIN A1c 5.3 % (4.0-6.0)
[2022-12-11 11:23] LABS: CHOLESTEROL RISK RATIO 3.25 (<5); HDL CHOLESTEROL 52.2 MG/DL (>40); LDL CHOLESTEROL 98.4 MG/DL (<100); NON-HDL-C 117.8 MG/DL
[2022-12-11 11:28] LABS: FERRITIN 17.8 NG/ML (7.3-270.7); FREE T4 1.24 NG/DL (0.89-1.76); THYROID STIMULATING HORMONE 1.699 uIU/ML (0.55-4.78)
[2022-12-12 13:09] LABS: H PYLORI SERUM QUANT IgG ABY 0.18 (0.00-0.79); TISSUE TRANSGLUTAMINASE IgA <2 U/mL (0-3)
== END ==
LOC: M PLALAB 08:42
PROVIDERS: ATTEND Family Medicine
DX: D50.9 Iron deficiency anemia, unspecified (principal); R73.01 Impaired fasting glucose

== ENCOUNTER → 2022-12-11 | Outpatient (CLI) | payer MEDICARE, OTHER | LOC: M PLAIMG 12:19 | PROVIDERS: ATTEND Family Medicine | DX: M19.011 Primary osteoarthritis, right shoulder (principal); D50.9 Iron deficiency anemia, unspecified; R73.01 Impaired fasting glucose; Z79.899 Other long term (current) drug therapy ==

== ENCOUNTER → 2022-12-14 | Outpatient (REF) | payer MEDICARE, OTHER | LOC: M SFHCPLAZ 17:20 | PROVIDERS: ATTEND Family Medicine | DX: R73.01 Impaired fasting glucose (principal); D50.9 Iron deficiency anemia, unspecified; I10 Essential (primary) hypertension; E55.9 Vitamin D deficiency, unspecified ==

== ENCOUNTER → 2023-01-01 | Outpatient (CLI) | payer MEDICARE, OTHER | LOC: M WHC 13:10 | PROVIDERS: ATTEND Family Medicine | DX: Z12.31 Encounter for screening mammogram for malignant neoplasm of breast (principal) ==

== ENCOUNTER 2023-03-05 12:06 | Emergency (ER) | payer MEDICARE, OTHER ==
[~2023-03-05] VITALS: Ht 165.1 cm; Wt 136.9 kg
[~2023-03-05 12:06] MED LIST changes: -COZA1TAB PO; +LOSA-527 PO
[2023-03-05 12:07] VITALS: O2SAT 98
[2023-03-05 15:15] LABS: HEMATOCRIT 40.6 % (36.0-47.0); HEMOGLOBIN 13.3 g/dl (12.0-15.5); MEAN CORPUSCULAR HEMOGLOBIN 28.1 pg (27.0-33.0); MEAN CORPUSCULAR HGB CONC 32.8 g/dl (32.0-36.5); MEAN CORPUSCULAR VOLUME 85.7 fl (80.0-96.0); PLATELET COUNT, AUTOMATED 290 10^3/uL (150-450); RED BLOOD COUNT 4.74 10^6/uL (4.00-5.40); WHITE BLOOD COUNT 9.5 10^3/uL (4.0-10.0)
[2023-03-05] MEDS ORDERED: KETOROLAC 60MG 2ML VIAL IM ONE (15:20)
[2023-03-05] MEDS ORDERED: physical therapy (15:59)
[2023-03-05 16:06] VITALS: BP 121/67; TEMP 97
== END 2023-03-05 16:07 | disposition home or self-care (01) ==
LOC: M ED 12:06
DX: M51.37 Other intervertebral disc degeneration, lumbosacral region (principal); I10 Essential (primary) hypertension; J45.909 Unspecified asthma, uncomplicated; K21.9 Gastro-esophageal reflux disease without esophagitis; Z79.899 Other long term (current) drug therapy
CPT/HCPCS: 72131; 80047; 85027; 96372; 99283; J1885

== ENCOUNTER → 2023-04-13 | Outpatient (CLI) | payer MEDICARE, OTHER ==
[~2023-04-13] MED LIST changes: +physical therapy
== END ==
LOC: M RAD 15:05
PROVIDERS: ATTEND Chiropractor
DX: M54.31 Sciatica, right side (principal); M99.03 Segmental and somatic dysfunction of lumbar region; M51.34 Other intervertebral disc degeneration, thoracic region; M99.02 Segmental and somatic dysfunction of thoracic region; M50.31 Other cervical disc degeneration, high cervical region; M99.01 Segmental and somatic dysfunction of cervical region; M41.86 Other forms of scoliosis, lumbar region; M51.36 Other intervertebral disc degeneration, lumbar region; M50.322 Other cervical disc degeneration at C5-C6 level

== ENCOUNTER 2023-05-31 10:32 | Emergency (ER) | payer MEDICARE, OTHER ==
[~2023-05-31] VITALS: Ht 165.1 cm; Wt 136.7 kg
[2023-05-31] MEDS ORDERED: ASPI81CH33 PO (10:50)
[2023-05-31] MEDS ORDERED: SEMA1PEN2 (10:51)
[2023-05-31 13:01] VITALS: BP 155/76; TEMP 97.8; O2SAT 99
== END 2023-05-31 13:02 | disposition home or self-care (01) ==
LOC: M ED 10:32
DX: U07.1 COVID-19 (principal); I10 Essential (primary) hypertension; Z79.52 Long term (current) use of systemic steroids; Z79.82 Long term (current) use of aspirin; Z79.83 Long term (current) use of bisphosphonates; Z79.899 Other long term (current) drug therapy

== ENCOUNTER → 2023-06-11 | Outpatient (CLI) | payer MEDICARE, OTHER ==
[~2023-06-11] MED LIST changes: +ASPI81CH33 PO; +SEMA1PEN2
[2023-06-11 10:07] LABS: BASO # 0.1 10^3/uL (0.0-0.2); BASO % 0.5 % (0.0-1.0); EOS # 0.2 10^3/uL (0.0-0.5); EOS % 2.4 % (0.0-3.0); HEMATOCRIT 40.9 % (36.0-47.0); LYMPH # 2.4 10^3/uL (1.5-5.0); LYMPH % 26.3 % (24.0-44.0); MEAN CORPUSCULAR HEMOGLOBIN 27.3 pg (27.0-33.0); MEAN CORPUSCULAR HGB CONC 31.8 g/dl (32.0-36.5); MEAN CORPUSCULAR VOLUME 85.9 fl (80.0-96.0); MONO # 0.6 10^3/uL (0.0-0.8); MONO % 6.4 % (2.0-8.0); NEUTROPHILS # 5.9 10^3/uL (1.5-8.5); NEUTROPHILS % 64.1 % (36.0-66.0); PLATELET COUNT, AUTOMATED 290 10^3/uL (150-450); RED BLOOD COUNT 4.76 10^6/uL (4.00-5.40); WHITE BLOOD COUNT 9.3 10^3/uL (4.0-10.0)
[2023-06-11 10:23] LABS: HEMOGLOBIN A1c 5.4 % (4.0-6.0)
[2023-06-11 10:32] LABS: ALBUMIN 3.5 G/DL (3.2-5.2); ALKALINE PHOSPHATASE 94 U/L (46-116); ALT/SGPT 17 U/L (7.0-40); AST/SGOT 12 U/L (<34); BILIRUBIN,TOTAL 0.6 MG/DL (0.3-1.2); BLOOD UREA NITROGEN 16 MG/DL (9-23); CARBON DIOXIDE LEVEL 30 MMOL/L (20-31); CHLORIDE LEVEL 107 MMOL/L (98-107); CREATININE FOR GFR 0.72 MG/DL (0.55-1.30); FERRITIN 17.2 NG/ML (7.3-270.7); GLOMERULAR FILTRATION RATE > 60.0 (>45); GLUCOSE, FASTING 82 MG/DL (74-106); POTASSIUM SERUM 4.1 MMOL/L (3.5-5.1); PTH INTACT 69.5 PG/ML (18.5-88.0); SODIUM LEVEL 143 MMOL/L (136-145); TOTAL 25(OH) VITAMIN D 73.8 NG/ML (20.0-100.0); TOTAL PROTEIN 6.4 G/DL (5.7-8.2)
== END ==
LOC: M PLALAB 08:55
PROVIDERS: ATTEND Family Medicine
DX: R73.01 Impaired fasting glucose (principal); D50.9 Iron deficiency anemia, unspecified; I10 Essential (primary) hypertension; E55.9 Vitamin D deficiency, unspecified

== ENCOUNTER → 2023-10-27 | Outpatient (CLI) | payer MEDICARE, OTHER ==
[2023-10-27 14:41] LABS: BASO % 0.5 % (0.0-1.0); EOS # 0.2 10^3/uL (0.0-0.5); HEMATOCRIT 42.1 % (36.0-47.0); HEMOGLOBIN 13.2 g/dl (12.0-15.5); LYMPH # 2.2 10^3/uL (1.5-5.0); LYMPH % 25.8 % (24.0-44.0); MEAN CORPUSCULAR HGB CONC 31.4 g/dl (32.0-36.5); MEAN CORPUSCULAR VOLUME 86.3 fl (80.0-96.0); MONO # 0.5 10^3/uL (0.0-0.8); MONO % 6.2 % (2.0-8.0); NEUTROPHILS # 5.5 10^3/uL (1.5-8.5); NEUTROPHILS % 65.3 % (36.0-66.0); PLATELET COUNT, AUTOMATED 308 10^3/uL (150-450); RED BLOOD COUNT 4.88 10^6/uL (4.00-5.40); WHITE BLOOD COUNT 8.5 10^3/uL (4.0-10.0)
[2023-10-27 15:12] LABS: CHOLESTEROL RISK RATIO 2.69 (<5); FERRITIN 9.4 NG/ML (7.3-270.7); FREE T4 1.21 NG/DL (0.89-1.76); HDL CHOLESTEROL 54.9 MG/DL (>40); LDL CHOLESTEROL 72.7 MG/DL (<100); NON-HDL-C 93.1 MG/DL; THYROID STIMULATING HORMONE 1.828 uIU/ML (0.55-4.78)
[2023-10-27 15:22] LABS: HEMOGLOBIN A1c 5.3 % (4.0-6.0)
== END ==
LOC: M PLALAB 10:14
PROVIDERS: ATTEND Family Medicine
DX: R73.01 Impaired fasting glucose (principal); D50.9 Iron deficiency anemia, unspecified; Z79.82 Long term (current) use of aspirin; Z79.899 Other long term (current) drug therapy

== ENCOUNTER → 2023-10-29 | Outpatient (REF) | payer MEDICARE, OTHER | LOC: M SFHCPLAZ 16:32 | PROVIDERS: ATTEND Family Medicine | DX: R73.01 Impaired fasting glucose (principal); D50.9 Iron deficiency anemia, unspecified; E55.9 Vitamin D deficiency, unspecified ==

== ENCOUNTER → 2024-01-04 | Outpatient (CLI) | payer MEDICARE, OTHER | LOC: M WHC 13:03 | PROVIDERS: ATTEND Family Medicine | DX: Z12.31 Encounter for screening mammogram for malignant neoplasm of breast (principal); M85.89 Other specified disorders of bone density and structure, multiple sites ==

== ENCOUNTER → 2024-02-23 | Outpatient (CLI) | payer MEDICARE, OTHER | LOC: M PLAIMG 10:10 | DX: M17.11 Unilateral primary osteoarthritis, right knee (principal) ==

== ENCOUNTER → 2024-04-21 | Outpatient (CLI) | payer MEDICARE, OTHER ==
[2024-04-21 13:35] LABS: BASO # 0.1 10^3/uL (0.0-0.2); BASO % 0.8 % (0.0-1.0); EOS # 0.2 10^3/uL (0.0-0.5); EOS % 2.4 % (0.0-3.0); HEMATOCRIT 42.8 % (36.0-47.0); HEMOGLOBIN 13.6 g/dl (12.0-15.5); LYMPH # 1.9 10^3/uL (1.5-5.0); LYMPH % 20.8 % (24.0-44.0); MEAN CORPUSCULAR HEMOGLOBIN 27.8 pg (27.0-33.0); MEAN CORPUSCULAR HGB CONC 31.8 g/dl (32.0-36.5); MEAN CORPUSCULAR VOLUME 87.3 fl (80.0-96.0); MONO # 0.7 10^3/uL (0.0-0.8); MONO % 7.6 % (2.0-8.0); NEUTROPHILS # 6.3 10^3/uL (1.5-8.5); NEUTROPHILS % 68.1 % (36.0-66.0); PLATELET COUNT, AUTOMATED 302 10^3/uL (150-450); WHITE BLOOD COUNT 9.2 10^3/uL (4.0-10.0)
[2024-04-21 13:54] LABS: PTH INTACT 95.2 PG/ML (18.5-88.0)
[2024-04-21 13:58] LABS: FERRITIN 25.2 NG/ML (7.3-270.7); TOTAL 25(OH) VITAMIN D 50.1 NG/ML (20.0-100.0)
[2024-04-21 14:16] LABS: HEMOGLOBIN A1c 5.1 % (4.0-6.0)
== END ==
LOC: M PLALAB 10:38
PROVIDERS: ATTEND Family Medicine
DX: D50.9 Iron deficiency anemia, unspecified (principal); R73.01 Impaired fasting glucose; E55.9 Vitamin D deficiency, unspecified

== ENCOUNTER → 2024-05-03 | Outpatient (CLI) | payer MEDICARE, OTHER | LOC: M SLEEP 20:00 | PROVIDERS: ATTEND Physician Assistant | DX: G47.33 Obstructive sleep apnea (adult) (pediatric) (principal); G47.61 Periodic limb movement disorder ==

== ENCOUNTER → 2024-06-28 | Outpatient (CLI) | payer MEDICARE | LOC: M SLEEP 20:00 | PROVIDERS: ATTEND Physician Assistant | DX: G47.33 Obstructive sleep apnea (adult) (pediatric) (principal); G47.61 Periodic limb movement disorder ==

== ENCOUNTER → 2024-09-14 | Outpatient (CLI) | payer MEDICARE ==
[2024-09-14 15:08] LABS: BASO # 0.1 10^3/uL (0.0-0.2); BASO % 0.6 % (0.0-1.0); EOS # 0.2 10^3/uL (0.0-0.5); EOS % 2.4 % (0.0-3.0); HEMATOCRIT 41.7 % (36.0-47.0); HEMOGLOBIN 13.6 g/dl (12.0-15.5); LYMPH % 25.3 % (24.0-44.0); MEAN CORPUSCULAR HEMOGLOBIN 28.2 pg (27.0-33.0); MEAN CORPUSCULAR HGB CONC 32.6 g/dl (32.0-36.5); MEAN CORPUSCULAR VOLUME 86.3 fl (80.0-96.0); MONO # 0.5 10^3/uL (0.0-0.8); MONO % 6.7 % (2.0-8.0); NEUTROPHILS # 5.2 10^3/uL (1.5-8.5); NEUTROPHILS % 64.9 % (36.0-66.0); PLATELET COUNT, AUTOMATED 305 10^3/uL (150-450); RED BLOOD COUNT 4.83 10^6/uL (4.00-5.40)
[2024-09-14 15:21] LABS: HEMOGLOBIN A1c 5.2 % (4.0-6.0)
[2024-09-14 15:37] LABS: FERRITIN 12.9 NG/ML (7.3-270.7)
[2024-09-14 15:39] LABS: TOTAL 25(OH) VITAMIN D 50.3 NG/ML (20.0-100.0)
[2024-09-14 15:47] LABS: ALBUMIN 3.4 G/DL (3.2-5.2); BILIRUBIN,TOTAL 0.7 MG/DL (0.3-1.2); CALCIUM LEVEL 8.9 MG/DL (8.3-10.6); CREATININE FOR GFR 0.75 MG/DL (0.55-1.30); GLOMERULAR FILTRATION RATE 86.1 (>45); MAGNESIUM LEVEL 2.2 MG/DL (1.8-2.4); POTASSIUM SERUM 4.2 MMOL/L (3.5-5.1); PTH INTACT 75.4 PG/ML (18.5-88.0); TOTAL PROTEIN 6.3 G/DL (5.7-8.2)
== END ==
LOC: M PLALAB 10:03
PROVIDERS: ATTEND Family Medicine
DX: D50.9 Iron deficiency anemia, unspecified (principal); R73.01 Impaired fasting glucose; E55.9 Vitamin D deficiency, unspecified; I10 Essential (primary) hypertension

== ENCOUNTER → 2025-01-04 | Outpatient (CLI) | payer MEDICARE, OTHER | LOC: M WHC 12:23 | PROVIDERS: ATTEND Family Medicine | DX: Z12.31 Encounter for screening mammogram for malignant neoplasm of breast (principal) ==

== ENCOUNTER → 2025-01-05 | Outpatient (CLI) | payer MEDICARE ==
[2025-01-05 14:11] LABS: BASO # 0.1 10^3/uL (0.0-0.2); BASO % 0.8 % (0.0-1.0); EOS # 0.2 10^3/uL (0.0-0.5); EOS % 2.3 % (0.0-3.0); LYMPH # 2.0 10^3/uL (1.5-5.0); LYMPH % 25.4 % (24.0-44.0); MONO # 0.6 10^3/uL (0.0-0.8); MONO % 7.4 % (2.0-8.0); NEUTROPHILS # 5.0 10^3/uL (1.5-8.5); NEUTROPHILS % 63.8 % (36.0-66.0); PLATELET COUNT, AUTOMATED 254 10^3/uL (150-450)
[2025-01-05 14:38] LABS: ALT/SGPT 21.0 U/L (7.0-40); AST/SGOT 20.0 U/L (<34); CALCIUM LEVEL 8.9 MG/DL (8.3-10.6); CARBON DIOXIDE LEVEL 28.0 MMOL/L (20-31); CHLORIDE LEVEL 106.0 MMOL/L (98-107); CHOLESTEROL LEVEL 154.0 MG/DL (<200); CHOLESTEROL RISK RATIO 2.39 (<5); CREATININE FOR GFR 0.84 MG/DL (0.55-1.30); GLOMERULAR FILTRATION RATE 75.2 (>45); LDL CHOLESTEROL 73.7 MG/DL (<100); MAGNESIUM LEVEL 2.2 MG/DL (1.8-2.4); NON-HDL-C 89.7 MG/DL; POTASSIUM SERUM 4.0 MMOL/L (3.5-5.1); SODIUM LEVEL 144.0 MMOL/L (136-145); TRIGLYCERIDES LEVEL 80.0 MG/DL (<150)
[2025-01-05 15:17] LABS: ESTIMATED AVERAGE GLUCOSE 105.0 MG/DL (60-110)
== END ==
LOC: M PLALAB 10:21
PROVIDERS: ATTEND Family Medicine
DX: D50.9 Iron deficiency anemia, unspecified (principal); I10 Essential (primary) hypertension; E55.9 Vitamin D deficiency, unspecified; R73.01 Impaired fasting glucose

== ENCOUNTER → 2025-05-04 | Outpatient (CLI) | payer MEDICARE, MEDICAID ==
[2025-05-04 15:41] LABS: BASO # 0.1 10^3/uL (0.0-0.2); BASO % 0.9 % (0.0-1.0); EOS # 0.2 10^3/uL (0.0-0.5); EOS % 2.3 % (0.0-3.0); LYMPH # 1.8 10^3/uL (1.5-5.0); LYMPH % 26.1 % (24.0-44.0); MONO # 0.4 10^3/uL (0.0-0.8); MONO % 5.8 % (2.0-8.0); NEUTROPHILS # 4.4 10^3/uL (1.5-8.5); NEUTROPHILS % 64.6 % (36.0-66.0); PLATELET COUNT, AUTOMATED 276 10^3/uL (150-450)
[2025-05-04 15:44] LABS: ALT/SGPT 20.0 U/L (7.0-40); AST/SGOT 18.0 U/L (<34); CALCIUM LEVEL 8.7 MG/DL (8.3-10.6); CARBON DIOXIDE LEVEL 29.0 MMOL/L (20-31); CHLORIDE LEVEL 106.0 MMOL/L (98-107); CREATININE FOR GFR 0.79 MG/DL (0.55-1.30); GLOMERULAR FILTRATION RATE 80.9 (>45); MAGNESIUM LEVEL 2.3 MG/DL (1.8-2.4); POTASSIUM SERUM 4.4 MMOL/L (3.5-5.1); SODIUM LEVEL 144.0 MMOL/L (136-145)
[2025-05-04 15:54] LABS: TOTAL 25(OH) VITAMIN D 41.0 NG/ML (20.0-100.0)
[2025-05-04 15:55] LABS: VITAMIN B12 LEVEL 794.0 PG/ML (211-911)
[2025-05-04 16:09] LABS: PTH INTACT 73.2 PG/ML (18.5-88.0)
[2025-05-04 16:18] LABS: ESTIMATED AVERAGE GLUCOSE 100.0 MG/DL (60-110)
== END ==
LOC: M PLALAB 10:34
PROVIDERS: ATTEND Family Medicine
DX: D50.9 Iron deficiency anemia, unspecified (principal); I10 Essential (primary) hypertension; R73.01 Impaired fasting glucose; E55.9 Vitamin D deficiency, unspecified; K76.0 Fatty (change of) liver, not elsewhere classified